=== PATIENT | male | born 1955 | race Caucasian/White ===

== ENCOUNTER 2020-06-26 11:04 | Outpatient (RCR) | payer OTHER, SELFPAY | END 2020-08-06 13:02 | disposition home or self-care (01) | LOC: HO.WCC 11:04 | PROVIDERS: PCP Internal Medicine; Visit Provider Physician Assistant Surgical | DX: E11.621 Type 2 diabetes mellitus with foot ulcer (principal); I87.331 Chronic venous hypertension (idiopathic) with ulcer and inflammation of right lower extremity; L97.512 Non-pressure chronic ulcer of other part of right foot with fat layer exposed; E11.622 Type 2 diabetes mellitus with other skin ulcer; L97.812 Non-pressure chronic ulcer of other part of right lower leg with fat layer exposed; E11.40 Type 2 diabetes mellitus with diabetic neuropathy, unspecified; G82.22 Paraplegia, incomplete | CPT/HCPCS: 99213; 99214 ==

== ENCOUNTER 2020-09-24 12:45 | Outpatient (RCR) | payer OTHER, SELFPAY | END 2021-06-09 15:46 | disposition home or self-care (01) | LOC: HO.WCC 12:45 | PROVIDERS: Visit Provider Physician Assistant | DX: E11.621 Type 2 diabetes mellitus with foot ulcer (principal); L97.412 Non-pressure chronic ulcer of right heel and midfoot with fat layer exposed; L89.899 Pressure ulcer of other site, unspecified stage; S91.105A Unspecified open wound of left lesser toe(s) without damage to nail, initial encounter; E11.51 Type 2 diabetes mellitus with diabetic peripheral angiopathy without gangrene; G82.22 Paraplegia, incomplete; Z99.3 Dependence on wheelchair | CPT/HCPCS: 11042; 11043; 11045; 11046; 15271; 15275; 17250; 97597; 99213; 99215; Q4106; Q4187 ==

== ENCOUNTER 2020-09-24 19:01 | Inpatient (IN) | payer OTHER, SELFPAY ==
[2020-09-24 19:19] VITALS: BP 122/78; PULSE 118; RESP 16; TEMP 36.8; O2SAT 84; BMI 35.1
--- NOTE | 2020-09-24 19:20 | ECG_ITS ---
Test Reason : FLU LIKE SYMPTOMS Blood Pressure : / mmHG Vent. Rate : 114 BPM Atrial Rate : 117 BPM P-R Int : 000 ms QRS Dur : 092 ms QT Int : 264 ms P-R-T Axes : 000 -20 001 degrees QTc Int : 363 ms Atrial fibrillation with rapid ventricular response Cannot exclude old inferior infarct Abnormal ECG No previous ECGs available Referred By: Huma Staley Electronically Signed By:CHONG CAMARA
--- NOTE | 2020-09-24 19:20 | XR_ITS ---
EXAMINATION: XR CHEST CLINICAL INFORMATION: Shortness of breath. Hypoxia.. COMPARISON: None TECHNIQUE: Frontal view of the chest was obtained. FINDINGS: Low lung volumes with left basilar subsegmental atelectasis. 3 consolidation. Moderate hiatal hernia. No pleural effusion or pneumothorax. Heart size incompletely assessed. XR/XR chest 1V IMPRESSION: Low lung volumes. No acute findings.
--- NOTE | 2020-09-24 19:29 | PC.NURSE ---
XRAY OBTAINED AT BEDSIDE. RESPIRATORY TREATMENT TO BE CHANGED TO INHALER PER MEL OQUENDO.
[2020-09-24 19:32] VITALS: BP 144/85; PULSE 116; RESP 22; O2SAT 100
--- NOTE | 2020-09-24 19:55 | ED_ITS ---
HPI - General Adult General Chief complaint: General Medical Stated complaint: R FOOT PAIN,HX OF DM NEUROPATHY,REQ OF VASC SURG Time Seen by Provider: 09/24/20 19:05 Source: patient and EMS Mode of arrival: EMS History of Present Illness HPI narrative: 64yo M with a past medical history of AFib on Eliquis, alcohol abuse, cellulitis, CVA, diabetes, indwelling catheter, BIBA c/o SOB, dry cough x couples days, and worsening LE weeping and swelling x mos, sent in by Dr. Lovell at wound clinic. Also reports ETOH abuse, trying to go to detox, admits to drinking 500-1200ml had liquor daily. Denies fever, chills, abd pain, N/V, CP. Denies contact with covid. Lives with son. Onset (ago): day(s) Related Data Home Medications Medication Instructions Recorded Confirmed apixaban [Eliquis] 5 mg PO BID 09/24/20 09/24/20 ascorbic acid (vitamin C) 500 mg PO BID 09/24/20 09/24/20 [Ascorbic Acid with Shruti Hips] atorvastatin 20 mg PO DAILY 09/24/20 09/24/20 buprenorphine HCl 4 mg SUBLINGUAL Q6H PRN 09/24/20 09/24/20 calcium carbonate-vitamin D3 1 tab PO DAILY 09/24/20 09/24/20 clobetasol 1 appl TOPICAL BID PRN 09/24/20 09/24/20 ferrous sulfate 325 mg PO DAILY 09/24/20 09/24/20 folic acid 1 mg PO DAILY 09/24/20 09/24/20 gabapentin 300 mg PO BEDTIME 09/24/20 09/24/20 insulin glargine 22 unit SUBCUT BEDTIME 09/24/20 09/24/20 insulin lispro 2 unit SUBCUT TID 09/24/20 09/24/20 levothyroxine 112 mcg PO DAILY 09/24/20 09/24/20 magnesium oxide 400 mg PO DAILY 09/24/20 09/24/20 methocarbamol 750 mg PO BID PRN 09/24/20 09/24/20 metoprolol tartrate 12.5 mg PO BID 09/24/20 09/24/20 multivitamin 1 tab PO DAILY 09/24/20 09/24/20 nystatin [Nystop] 1 appl TOPICAL BID 09/24/20 09/24/20 omeprazole 40 mg PO BID 09/24/20 09/24/20 polyethylene glycol 3350 [Miralax] 17 g PO DAILY 09/24/20 09/24/20 sennosides [senna] 17.2 mg PO BEDTIME 09/24/20 09/24/20 thiamine HCl (vitamin B1) 100 mg PO DAILY 09/24/20 09/24/20 torsemide 20 mg PO BID 09/24/20 09/24/20 triamcinolone acetonide 1 appl TOPICAL BID 09/24/20 09/24/20 Allergies Allergy/AdvReac Type Severity Reaction Status Date / Time amlodipine Allergy Unknown Unknown Verified 09/24/20 21:28 Review of Systems Review of Systems: Constitutional: No Weight loss, No Fever, No Chills, + Fatigue, No Malaise Cardiovascular: No Chest Pain, + SOB, + Dyspnea on Exertion, + Orthopnea, + Edema, No Palpitations Respiratory: + Cough, No Sputum, No Wheezing Gastrointestinal: No Nausea, No Vomiting, No Diarrhea, No Constipation, No Abdominal pain Genitourinary: No irregular bleeding, No Dysuria, No Urinary Frequency, No Hematuria Musculoskeletal: No joint pain, No Myalgias, No Joint Swelling Skin: No Skin Lesions, No rash Neuro: + Headache Yes all other systems are reviewed and are negative [facility] Past Medical History Attestation statement: The following information was validated with the patient. Medical History (Updated 09/24/20 @ 22:40 by MEL Garcia) Afib Alcohol abuse Cardiac defibrillator in place Cellulitis CVA (cerebral vascular accident) Diabetes Indwelling catheter present on admission Social History Social History Advance Directives: No Advance Directives Information Provided: No Physical Exam Vital Signs: Vital Signs: Last Vital Signs Temp 98.7 F 09/24/20 20:00 Pulse 117 H 09/24/20 22:00 Resp 20 09/24/20 22:00 BP 125/82 09/24/20 22:00 Pulse Ox 100 09/24/20 22:00 Body Mass Index 35.1 Const: General: cooperative and poor hygiene Nutritional Appearance: obese Orientation/consciousness: patient oriented x3 Limitations: no limitations HENMT: Head: Yes normal to inspection Ears: hearing grossly normal bilaterally General nose exam: Normal external nose present Face and sinus: Yes normal facial exam Eyes: General: appearance normal, both eyes and all related structures EOM: EOMs intact bilaterally Neck: Neck: Yes normal visual inspection and Yes no meningeal signs Resp: Effort & Inspection: normal respiratory effort, no stridor and tachypneic Auscultation: diminished lung sounds (Bibasilar) Cardio: Rate: tachycardic Heart sounds: S1 normal heart sound present and S2 normal heart sound present GI: Inspection: Yes normal to inspection Palpation (GI): Soft to palpation, nontender, no guarding and not rigid : Other: + fungal rash noted to lower abdomen/groin Skin: Other: + bilateral lower extremity pitting edema with skin breakdown & clear drainage. weeping wounds to b/l feet. +erythema to b/l LE and warmth to touch to LLE Rashes: no rashes Wounds: no wounds Neuro: General: patient oriented x3 and no meningeal signs Extrem: General: Yes normal to inspection Course Course Course Narrative: XR chest 1V IMPRESSION: Low lung volumes. No acute findings * no leukocytosis, sodium low 122, K+5.4, BNP 50 * COVID/Flu/RSV negative * Lactic 2.6 > avoiding IVF due to fluid overload LT 2V IMPRESSION: Prominent diffuse soft tissue swelling. Significant osteopenia which limits the evaluation. No definite osseous erosions. XR foot RT 2V IMPRESSION: 1. Diffuse soft tissue swelling, particularly at the dorsum of the foot. No air or radiopaque foreign body. 2. Focal bone loss of the distal tibia at the anterior ankle joint. There are fine reticular soft tissue calcifications adjacent to this site. This could be chronic but an acute abnormality including osteomyelitis not excluded. Clinically correlate. MRI of the ankle without and with contrast would be helpful for further evaluation. 3. Severe arthropathy of the first metatarsal phalangeal joint * Likely chronic changes * UA positive > Zosyn should cover CT chest wo con IMPRESSION: * No evidence of acute pneumonitis or consolidation. * Low lung volumes and right basilar subsegmental atelectasis. * Cardiomegaly, mild. * Ascending aortic aneurysm measures 4.9 cm. No intramural hematoma. * Moderate to severe hepatic steatosis. * Indeterminate, incompletely imaged left adrenal nodule measuring 2.[address] adrenal mass protocol for further evaluation. Plan for admission > Vancomycin added to regimen Medical Decision Making MDM Narrative Medical decision making narrative: 64yo M with a past medical history of AFib on Eliquis, alcohol abuse, cellulitis, CVA, diabetes, indwelling catheter, BIBA c/o SOB, dry cough x couples days, and worsening LE weeping and swelling x mos, sent in by Dr. Lovell. On exam tachycardic, tachypneic, satting 84% on RA > increased to 100% on 4 L nasal cannula, with decreased breath sounds bibasilar, bilateral LE pitting edema with skin breakdown/cellulites. Concern for COVID- 19/viral syndrome vs pneumonia vs CHF vs cellulitis/osteomyelitis. Lower concern for PE as patient is anticoagulated Plan: EKG, labs, imaging, albuterol, Decadron, COVID-19 testing, empiric IV antibiotics, admission. Holding IVF due to fluid overload and hypoventilation syndrome Lab Data Result diagrams: 09/24/20 19:49 09/24/20 19:49 Labs: Lab Results 09/24/20 09/24/20 09/24/20 Range/Units 19:48 19:48 19:48 WBC (4.8-10.8) X10*3/uL RBC (4.60-5.80) X10*6/uL Hgb (14.0-18.0) g/dl Hct (42-52) % MCV (80-98) fL MCH (27.0-33.0) pg MCHC (31.0-36.0) g/dl RDW (11.0-16.0) % Plt Count (160-400) X10*3/uL MPV (9.4-12.4) fL Immature Gran % (Auto) (0.0-0.4) % Neut % (Auto) (45-73) % Lymph % (Auto) (20-40) % [place] % (Auto) (2-11) % Eos % (Auto) (0-4) % Baso % (Auto) (0-2) % Lymph # (Auto) (1.2-4.9) X10*3/uL [place] # (Auto) (0.1-1.2) X10*3/uL Eos # (Auto) (0.0-0.4) X10*3/uL Baso # (Auto) (0.0-0.2) X10*3/uL Abs Immat Gran (auto) (0.00-0.03) X10*3/uL Absolute Neuts (auto) (2.0-8.3) X10*3/uL Absolute Nucleated RBC (0.0-0.012) X10*3/uL Nucleated RBC % (auto) (0.0-0.2) /100WBC Smear Tech's Comments PT (10.8-13.0) SEC INR (0.9-1.1) APTT (24.1-38.0) SEC Sodium (135-145) mmol/L Potassium (3.3-5.1) mmol/l Chloride (96-108) mmol/L Carbon Dioxide (22-29) mmol/L Anion Gap (12-20) BUN (9-16) mg/dL Creatinine (0.5-1.4) mg/dL Estim Creat Clear Calc Estimated GFR Random Glucose (60-115) mg/dL Lactic Acid 2.6 H* (0.5-2.0) mmol/L Lactic Acid Fup @ 2Hr (0.5-2.0) mmol/L Calcium (8.4-10.2) mg/dL Magnesium 2.3 (1.6-2.6) mg/dL Ferritin 43 (20-250) ng/mL Total Bilirubin (0.0-1.0) mg/dL Direct Bilirubin (0.0-0.5) mg/dL AST (5-37) U/L ALT (0-40) U/L Alkaline Phosphatase (39-117) U/L Lactate Dehydrogenase 558 H (118-273) U/L Troponin I High Sens 11.0 (<3.5-35.0) ng/L C-Reactive Protein 1.01 H (< or = 0.50) mg/dL B-Natriuretic Peptide 50 (<100) pg/mL Total Protein (6.5-8.0) g/dL Albumin (3.5-5.0) g/dL Procalcitonin ng/mL Urine Color Urine Appearance Urine pH (5.0-8.0) Ur Specific [place] (1.005-1.025) Urine Protein (NEG-TRACE) MG/DL Urine Glucose (UA) (NEG) MG/DL Urine Ketones (NEG) MG/DL Urine Blood (NEG) Urine Nitrite (NEG) Ur Leukocyte Esterase (NEG) Urine RBC (0) /HPF Urine WBC (0-4) /HPF Ur Squamous Epith Cells /LPF Urine Bacteria /LPF Urine Mucus /LPF Ethyl Alcohol mg/dL Coronavirus (PCR) (Negative) Influenza Type A (PCR) (Negative) Influenza Type B (PCR) (Negative) RSV RNA Qual (PCR) (Negative) 09/24/20 09/24/20 09/24/20 Range/Units 19:49 19:49 19:49 WBC 10.5 (4.8-10.8) X10*3/uL RBC 4.00 L (4.60-5.80) X10*6/uL Hgb 11.9 L (14.0-18.0) g/dl Hct 39.1 L (42-52) % MCV 97.8 (80-98) fL MCH 29.8 (27.0-33.0) pg MCHC 30.4 L (31.0-36.0) g/dl RDW 17.6 H (11.0-16.0) % Plt Count 223 (160-400) X10*3/uL MPV 9.3 L (9.4-12.4) fL Immature Gran % (Auto) 1.2 H (0.0-0.4) % Neut % (Auto) 85.6 H (45-73) % Lymph % (Auto) 4.7 L (20-40) % [place] % (Auto) 7.3 (2-11) % Eos % (Auto) 0.9 (0-4) % Baso % (Auto) 0.3 (0-2) % Lymph # (Auto) 0.5 L (1.2-4.9) X10*3/uL [place] # (Auto) 0.8 (0.1-1.2) X10*3/uL Eos # (Auto) 0.1 (0.0-0.4) X10*3/uL Baso # (Auto) 0.0 (0.0-0.2) X10*3/uL Abs Immat Gran (auto) 0.13 H (0.00-0.03) X10*3/uL Absolute Neuts (auto) 9.0 H (2.0-8.3) X10*3/uL Absolute Nucleated RBC 0.000 (0.0-0.012) X10*3/uL Nucleated RBC % (auto) 0.0 (0.0-0.2) /100WBC Smear Tech's Comments VERIFIED PT 17.2 H (10.8-13.0) SEC INR 1.4 H (0.9-1.1) APTT 30.4 (24.1-38.0) SEC Sodium 122 L (135-145) mmol/L Potassium 5.4 H (3.3-5.1) mmol/l Chloride 86 L (96-108) mmol/L Carbon Dioxide 28 (22-29) mmol/L Anion Gap 13 (12-20) BUN 31 H (9-16) mg/dL Creatinine 1.19 (0.5-1.4) mg/dL Estim Creat Clear Calc 95.0 Estimated GFR > 60 Random Glucose 238 H (60-115) mg/dL Lactic Acid (0.5-2.0) mmol/L Lactic Acid Fup @ 2Hr (0.5-2.0) mmol/L Calcium 8.3 L (8.4-10.2) mg/dL Magnesium (1.6-2.6) mg/dL Ferritin (20-250) ng/mL Total Bilirubin 0.4 (0.0-1.0) mg/dL Direct Bilirubin 0.3 (0.0-0.5) mg/dL AST 33 (5-37) U/L ALT 55 H (0-40) U/L Alkaline Phosphatase 142 H (39-117) U/L Lactate Dehydrogenase (118-273) U/L Troponin I High Sens (<3.5-35.0) ng/L C-Reactive Protein (< or = 0.50) mg/dL B-Natriuretic Peptide (<100) pg/mL Total Protein 6.4 L (6.5-8.0) g/dL Albumin 3.6 (3.5-5.0) g/dL Procalcitonin ng/mL Urine Color Urine Appearance Urine pH (5.0-8.0) Ur Specific [place] (1.005-1.025) Urine Protein (NEG-TRACE) MG/DL Urine Glucose (UA) (NEG) MG/DL Urine Ketones (NEG) MG/DL Urine Blood (NEG) Urine Nitrite (NEG) Ur Leukocyte Esterase (NEG) Urine RBC (0) /HPF Urine WBC (0-4) /HPF Ur Squamous Epith Cells /LPF Urine Bacteria /LPF Urine Mucus /LPF Ethyl Alcohol mg/dL Coronavirus (PCR) (Negative) Influenza Type A (PCR) (Negative) Influenza Type B (PCR) (Negative) RSV RNA Qual (PCR) (Negative) 09/24/20 09/24/20 09/24/20 Range/Units 19:50 19:51 20:11 WBC (4.8-10.8) X10*3/uL RBC (4.60-5.80) X10*6/uL Hgb (14.0-18.0) g/dl Hct (42-52) % MCV (80-98) fL MCH (27.0-33.0) pg MCHC (31.0-36.0) g/dl RDW (11.0-16.0) % Plt Count (160-400) X10*3/uL MPV (9.4-12.4) fL Immature Gran % (Auto) (0.0-0.4) % Neut % (Auto) (45-73) % Lymph % (Auto) (20-40) % [place] % (Auto) (2-11) % Eos % (Auto) (0-4) % Baso % (Auto) (0-2) % Lymph # (Auto) (1.2-4.9) X10*3/uL [place] # (Auto) (0.1-1.2) X10*3/uL Eos # (Auto) (0.0-0.4) X10*3/uL Baso # (Auto) (0.0-0.2) X10*3/uL Abs Immat Gran (auto) (0.00-0.03) X10*3/uL Absolute Neuts (auto) (2.0-8.3) X10*3/uL Absolute Nucleated RBC (0.0-0.012) X10*3/uL Nucleated RBC % (auto) (0.0-0.2) /100WBC Smear Tech's Comments PT (10.8-13.0) SEC INR (0.9-1.1) APTT (24.1-38.0) SEC Sodium (135-145) mmol/L Potassium (3.3-5.1) mmol/l Chloride (96-108) mmol/L Carbon Dioxide (22-29) mmol/L Anion Gap (12-20) BUN (9-16) mg/dL Creatinine (0.5-1.4) mg/dL Estim Creat Clear Calc Estimated GFR Random Glucose (60-115) mg/dL Lactic Acid (0.5-2.0) mmol/L Lactic Acid Fup @ 2Hr (0.5-2.0) mmol/L Calcium (8.4-10.2) mg/dL Magnesium (1.6-2.6) mg/dL Ferritin (20-250) ng/mL Total Bilirubin (0.0-1.0) mg/dL Direct Bilirubin (0.0-0.5) mg/dL AST (5-37) U/L ALT (0-40) U/L Alkaline Phosphatase (39-117) U/L Lactate Dehydrogenase (118-273) U/L Troponin I High Sens (<3.5-35.0) ng/L C-Reactive Protein (< or = 0.50) mg/dL B-Natriuretic Peptide (<100) pg/mL Total Protein (6.5-8.0) g/dL Albumin (3.5-5.0) g/dL Procalcitonin 0.43 ng/mL Urine Color Urine Appearance Urine pH (5.0-8.0) Ur Specific [place] (1.005-1.025) Urine Protein (NEG-TRACE) MG/DL Urine Glucose (UA) (NEG) MG/DL Urine Ketones (NEG) MG/DL Urine Blood (NEG) Urine Nitrite (NEG) Ur Leukocyte Esterase (NEG) Urine RBC (0) /HPF Urine WBC (0-4) /HPF Ur Squamous Epith Cells /LPF Urine Bacteria /LPF Urine Mucus /LPF Ethyl Alcohol 28 mg/dL Coronavirus (PCR) NEGATIVE (Negative) Influenza Type A (PCR) NEGATIVE (Negative) Influenza Type B (PCR) NEGATIVE (Negative) RSV RNA Qual (PCR) NEGATIVE (Negative) 09/24/20 09/24/20 Range/Units 22:02 22:04 WBC (4.8-10.8) X10*3/uL RBC (4.60-5.80) X10*6/uL Hgb (14.0-18.0) g/dl Hct (42-52) % MCV (80-98) fL MCH (27.0-33.0) pg MCHC (31.0-36.0) g/dl RDW (11.0-16.0) % Plt Count (160-400) X10*3/uL MPV (9.4-12.4) fL Immature Gran % (Auto) (0.0-0.4) % Neut % (Auto) (45-73) % Lymph % (Auto) (20-40) % [place] % (Auto) (2-11) % Eos % (Auto) (0-4) % Baso % (Auto) (0-2) % Lymph # (Auto) (1.2-4.9) X10*3/uL [place] # (Auto) (0.1-1.2) X10*3/uL Eos # (Auto) (0.0-0.4) X10*3/uL Baso # (Auto) (0.0-0.2) X10*3/uL Abs Immat Gran (auto) (0.00-0.03) X10*3/uL Absolute Neuts (auto) (2.0-8.3) X10*3/uL Absolute Nucleated RBC (0.0-0.012) X10*3/uL Nucleated RBC % (auto) (0.0-0.2) /100WBC Smear Tech's Comments PT (10.8-13.0) SEC INR (0.9-1.1) APTT (24.1-38.0) SEC Sodium (135-145) mmol/L Potassium (3.3-5.1) mmol/l Chloride (96-108) mmol/L Carbon Dioxide (22-29) mmol/L Anion Gap (12-20) BUN (9-16) mg/dL Creatinine (0.5-1.4) mg/dL Estim Creat Clear Calc Estimated GFR Random Glucose (60-115) mg/dL Lactic Acid (0.5-2.0) mmol/L Lactic Acid Fup @ 2Hr 2.3 H* (0.5-2.0) mmol/L Calcium (8.4-10.2) mg/dL Magnesium (1.6-2.6) mg/dL Ferritin (20-250) ng/mL Total Bilirubin (0.0-1.0) mg/dL Direct Bilirubin (0.0-0.5) mg/dL AST (5-37) U/L ALT (0-40) U/L Alkaline Phosphatase (39-117) U/L Lactate Dehydrogenase (118-273) U/L Troponin I High Sens (<3.5-35.0) ng/L C-Reactive Protein (< or = 0.50) mg/dL B-Natriuretic Peptide (<100) pg/mL Total Protein (6.5-8.0) g/dL Albumin (3.5-5.0) g/dL Procalcitonin ng/mL Urine Color COLORLESS Urine Appearance CLOUDY Urine pH 8.0 (5.0-8.0) Ur Specific [place] 1.015 (1.005-1.025) Urine Protein NEG (NEG-TRACE) MG/DL Urine Glucose (UA) NEG (NEG) MG/DL Urine Ketones NEG (NEG) MG/DL Urine Blood 3+ H (NEG) Urine Nitrite POS H (NEG) Ur Leukocyte Esterase 3+ H (NEG) Urine RBC 10-14 H (0) /HPF Urine WBC 30-49 H (0-4) /HPF Ur Squamous Epith Cells 1+ /LPF Urine Bacteria 2+ /LPF Urine Mucus 1+ /LPF Ethyl Alcohol mg/dL Coronavirus (PCR) (Negative) Influenza Type A (PCR) (Negative) Influenza Type B (PCR) (Negative) RSV RNA Qual (PCR) (Negative) Discharge Plan Discharge Clinical Impression: Cellulitis, Acute UTI, Fluid overload Patient Disposition: Admitted As Inpatient
[2020-09-24 20:00] VITALS: BP 104/65; PULSE 123; RESP 26; TEMP 37.1; O2SAT 100
[2020-09-24 20:07] LABS: Basophils Percent Auto 0.3 % (0-2); Eosinophils Absolute Auto 0.1 X10*3/uL (0.0-0.4); Eosinophils Percent Auto 0.9 % (0-4); Hematocrit 39.1 % (42-52); Hemoglobin 11.9 g/dl (14.0-18.0); Imm Gran Abs Auto 0.13 X10*3/uL (0.00-0.03); Imm Gran Pct Auto 1.2 % (0.0-0.4); Lymphocytes Absolute Auto 0.5 X10*3/uL (1.2-4.9); Lymphocytes Percent Auto 4.7 % (20-40); MANUAL DIFF FLAG SCAN; Mean Corpuscular HGB Conc 30.4 g/dl (31.0-36.0); Mean Corpuscular Hemoglobin 29.8 pg (27.0-33.0); Mean Corpuscular Volume 97.8 fL (80-98); Mean Platelet Volume 9.3 fL (9.4-12.4); Monocytes Absolute Auto 0.8 X10*3/uL (0.1-1.2); Monocytes Percent Auto 7.3 % (2-11); Neutrophils Percent Auto 85.6 % (45-73); Platelet Count 223 X10*3/uL (160-400); Red Cell Distribution Width 17.6 % (11.0-16.0); SCAN SMEAR FLAG 1; White Blood Count 10.5 X10*3/uL (4.8-10.8)
--- NOTE | 2020-09-24 20:10 | XR_ITS ---
EXAMINATION: XR FOOT, RIGHT CLINICAL INFORMATION: Concern for osteomyelitis. COMPARISON: None TECHNIQUE: 2 views of the right foot. FINDINGS: There is diffuse soft tissue swelling of the foot. This is most significant at the forefoot at the dorsum of the foot. There is no air in the soft tissues. There is diffuse osteopenia. There is cortical bone loss at the anterior tibia at the joint line with adjacent soft tissue fine calcifications which could be acute or chronic. There is no other area of bone destruction of the foot. No abnormal periosteal reaction. There is degenerative change of bony ankylosis of the first metatarsal phalangeal joint. There are marginal bone spurs and subchondral lucencies at this joint involving the phalanges and the metatarsal head. XR/XR foot RT 2V IMPRESSION: 1. Diffuse soft tissue swelling, particularly at the dorsum of the foot. No air or radiopaque foreign body. 2. Focal bone loss of the distal tibia at the anterior ankle joint. There are fine reticular soft tissue calcifications adjacent to this site. This could be chronic but an acute abnormality including osteomyelitis not excluded. Clinically correlate. MRI of the ankle without and with contrast would be helpful for further evaluation. 3. Severe arthropathy of the first metatarsal phalangeal joint
--- NOTE | 2020-09-24 20:10 | XR_ITS ---
EXAMINATION: XR FOOT, LEFT CLINICAL INFORMATION: Evaluate osteomyelitis COMPARISON: None TECHNIQUE: 2 views of the left foot. FINDINGS: Osteopenia. No fracture or dislocation. Diffuse significant osteopenia throughout the mid foot limits evaluation. No definite erosive changes. Degenerative changes are seen at the interphalangeal joints. Degenerative changes noted at the ankle. There is diffuse prominent soft tissue swelling. XR/XR foot LT 2V IMPRESSION: Prominent diffuse soft tissue swelling. Significant osteopenia which limits the evaluation. No definite osseous erosions.
[2020-09-24 20:12] LABS: INTERNATIONAL NORM RATIO 1.4 (0.9-1.1); Prothrombin Time 17.2 SEC (10.8-13.0)
[2020-09-24 20:15] LABS: Partial Thromboplastin Time 30.4 SEC (24.1-38.0)
[2020-09-24 20:24] LABS: SLIDE REVIEW VERIFIED
[2020-09-24 20:26] LABS: C Reactive Protein 1.01 mg/dL (< or = 0.50); Lactate Dehydrogenase 558 U/L (118-273); Magnesium 2.3 mg/dL (1.6-2.6)
[2020-09-24 20:30] LABS: B Type Natriuretic Peptide 50 pg/mL (<100)
[2020-09-24 20:31] LABS: Ethanol 28 mg/dL
[2020-09-24 20:36] LABS: Alanine Aminotransferase 55 U/L (0-40); Albumin Level 3.6 g/dL (3.5-5.0); Alkaline Phosphatase 142 U/L (39-117); Anion Gap 13 (12-20); Aspartate Amino Transferase 33 U/L (5-37); Bilirubin Direct 0.3 mg/dL (0.0-0.5); Bilirubin Total 0.4 mg/dL (0.0-1.0); Blood Urea Nitrogen 31 mg/dL (9-16); Calcium 8.3 mg/dL (8.4-10.2); Carbon Dioxide 28 mmol/L (22-29); Chloride 86 mmol/L (96-108); Estimated Glomerular Filt Rate > 60; Glucose Random 238 mg/dL (60-115); Potassium 5.4 mmol/l (3.3-5.1); Sodium 122 mmol/L (135-145); Total Protein 6.4 g/dL (6.5-8.0)
[2020-09-24] MEDS: dexAMETHasone sod phosphate 4 MG/ML VIAL 6 MG IVPUSH (20:36)
[2020-09-24] MEDS: Furosemide 40 MG/4 ML VIAL IVPUSH (20:36)
[2020-09-24] MEDS: Piperacillin Sodium/Tazobactam 3.375 GM in 0.9 % Sodium Chloride 50 ML IV (20:37)
[2020-09-24 20:40] LABS: Lactic Acid 2.6 mmol/L (0.5-2.0)
[2020-09-24 20:43] LABS: Influenza A PCR NEGATIVE (Negative); Influenza B PCR NEGATIVE (Negative); Resp Syncy Virus RNA Qual PCR NEGATIVE (Negative); SARS COV2 PCR INHOUSE NEGATIVE (Negative)
[2020-09-24 20:44] LABS: Procalcitonin 0.43 ng/mL
[2020-09-24 20:48] LABS: Ferritin 43 ng/mL (20-250)
--- NOTE | 2020-09-24 20:55 | CT_ITS ---
EXAMINATION: CT CHEST WITHOUT CONTRAST CLINICAL INFORMATION: Hypoxia COMPARISON: None TECHNIQUE: Multidetector volumetric CT imaging of the chest was done. Axial MIP volume rendering provided. Sagittal and coronal reformatted images were obtained. This CT examination was performed using dose optimization techniques as appropriate, variously including the following: *Automated exposure control *Adjustment of mA and/or kV according to patient size (this includes techniques or standardized protocols for targeted exams where dose is matched to indication/reason for exam; i.e. extremities or head) *Use of iterative reconstruction technique DLP: 458 mGy-cm FINDINGS: LUNGS: Low lung volumes and bibasilar subsegmental atelectasis, more pronounced at the right lung base posteriorly. No evidence of acute pneumonitis or infective parenchymal consolidation. MEDIASTINUM: Mild cardiomegaly. Ascending aortic aneurysm measures 4.9 cm. No evidence of intramural hematoma. No pericardial effusion. No mediastinal or hilar adenopathy. Triple vessel coronary calcifications. PLEURA: There is no pleural effusion. No pleural mass or thickening. AXILLA: No lymphadenopathy. UPPER ABDOMEN: Severe diffuse hepatic steatosis. Incompletely imaged nodule in the region of the left adrenal genu measuring 2.8 cmc, with attenuation of [address] Hounsfield [address] Recommend dedicated [address] adrenal mass protocol.. OSSEOUS STRUCTURES: No acute or suspicious osseous abnormalities. CT/CT chest wo con IMPRESSION: * No evidence of acute pneumonitis or consolidation. * Low lung volumes and right basilar subsegmental atelectasis. * Cardiomegaly, mild. * Ascending aortic aneurysm measures 4.9 cm. No intramural hematoma. * Moderate to severe hepatic steatosis. * Indeterminate, incompletely imaged left adrenal nodule measuring 2.[address] adrenal mass protocol for further evaluation.
[2020-09-24] MEDS: Albuterol Sulfate 90 MCG 8 GM INHALER 4 PUFF INHALE (21:01)
[2020-09-24 21:02] VITALS: PULSE 117; O2SAT 99
--- NOTE | 2020-09-24 21:48 | PC.NURSE ---
INSTRUCTED TO HOLD ORDERED METOPROLOL BY MEL OQUENDO. PT STATES I JUST TAKE WHATEVER MEDS THEY GIVE ME, I JUST TAKE WHAT'S IN FRONT OF ME. SO I KNOW THAT SOMETIMES I TAKE MY METOPROLOL, BUT SOMETIMES I DON'T, AND SOMETIMES IT'S JUST HALF OF A TABLET BECAUSE MY BLOOD PRESSURE IS FINE. PROVIDER NOTIFIED OF THIS STATEMENT, AWARE OF CURRENT VITAL SIGNS. WILL CONTINUE TO MONITOR. PATIENT ALSO EXPRESSING FRUSTRATION REGARDING WAITING FOR A BED ASSIGNMENT. STATES UGH, MY DOCTOR CALLED [facility] SO I SHOULD HAVE JUST BEEN ADMITTED RIGHT AWAY. I DON'T WANT TO BE STUCK DOWN HERE [IN THE ED] WITH THESE PEOPLE [OTHER ED PATIENTS]. WILL CONTINUE TO MONITOR.
[2020-09-24 21:58] VITALS: BP 125/82; PULSE 108
[2020-09-24 22:00] VITALS: BP 125/82; PULSE 117; RESP 20; O2SAT 100
[2020-09-24 22:00] LABS: Reflex Lactate? Lactic Acid Added
[2020-09-24 22:11] LABS: Glucose Urine UA NEG (NEG); Leukocyte Esterase Urine 3+ (NEG); Nitrite Urine POS (NEG); Specific Gravity - Urine 1.015 (1.005-1.025); Urine Blood 3+ (NEG); Urine Ketones NEG (NEG); Urine Protein NEG (NEG-TRACE)
[2020-09-24 22:12] LABS: Color Urine COLORLESS
[2020-09-24 22:13] LABS: Appearance Urine CLOUDY
[2020-09-24 22:17] LABS: Bacteria Urine 2+ /LPF; Mucus Urine 1+ /LPF; Squamous Epithelial Cell Urine 1+ /LPF; WBC Urine 30-49 /HPF (0-4)
[2020-09-24 22:33] LABS: ~Lactic Acid-LAB USE ONLY 2.3 mmol/L (0.5-2.0)
--- NOTE | 2020-09-24 23:18 | PC.NURSE ---
HOSPITALIST AT BEDSIDE FOR EVALUATION. PHOTOS TAKEN OF VARIOUS BILATERAL LOWER EXTREMITY WOUNDS. LEGS WEEPING, SCALY, PINK. TOES ARE WHITE, BLACK, AND PINK. OOZING LEGS BILATERALLY. PT REPORTS BEING UNABLE TO AMBULATE SINCE 2016 AND USES POWERCHAIR AT HOME, REPORTS BEING ABLE TO SELF TRANSFER FROM BED TO WHEELCHAIR. 20G IV ACCESS REMAINS PATENT AND INTACT ON LEFT AC. AWARE OF PLAN TO ADMIT. SINUS TACHYCARDIA 110s ON [employer]. ON 4LPM OXYGEN VIA NASAL CANNULA. COUGHING, STATES THICK MUCOUS . DENIES FEVER/CHILLS/CHEST PAIN. CHRONIC SIFUENTES CATHETER, CHANGED EVERY 2 WEEKS BY [facility]. CHRONIC ETOH USE, ?WITHDRAWING, SEEKING DETOX.
[2020-09-24] MEDS: PHENobarbitaL sodium 130 MG/ML VIAL 285 MG IM (23:52)
[2020-09-25] VITALS (16 sets, daily range): BP systolic 128–158; BP diastolic 63–91; PULSE 93–117; RESP 18–26; TEMP 36.2–36.8; O2SAT 89–100
[2020-09-25 00:12] LABS: Reflex Lactate? 2 Y
--- NOTE | 2020-09-25 00:21 | P.HPHOSP_ITS ---
History of Present Illness Date of Service: 09/24/20 Chief Complaint: Dyspnea, worsening leg, feet wounds 64 year old man with multiple medical problems presented from wound care at suggestion of vascular surgeon due to worsening appearance of feet. Patient has history of lower extremity edema and chronic venous stasis and has been seen at wound care regularly. His feet have been more erythematous lately and that caused him to be referred to ED. He states no pain in the feet as he has no sensation. States he had a spinal infection approx 4-5 years ago and since has been reliant on motorized scooter as he cannot walk. Per report he had a foot infection that led to his spinal issue so description seems like epidural abscess seeded from the feet. He has been getting wound care periodically for his feet but appearance is worse lately. Denies fevers or chills. Does have weeping from foot wounds that is chronic. He also was hypoxemic on presentation. Occasional cough that produces thick sputum. No chest pain reported. Also noted to be significantly hyponatremic on presentation but no dizziness or lightheadedness and no nausea/vomiting. Also of note, patient has a chronic indwelling Franklin that is changed every 2 weeks. States had a neobladder constructed after resection for bladder cancer and is dpendent on the Franklin now. used to be able to change it but has limited use of his left arm and hand no so cannot self-cath. Arm issues stem from a cervical surgery he was having several years ago. He also is a heavy drinker, consuming approx a half liter or more of spirits daily. States gets shakes occasionally and hallucinations when not drinking but no seizures. Currently was slated to go to rehab for ETOH but had to come here instead for the feet issue. Review of Systems Constitutional: Comments: No chills or fevers Eyes: Comments: No vision changes ENT: Comments: no sore thorat Cardiovascular: Comments: No chest pain Respiratory: Comments: Some dypena on presentation Gastrointestinal: Comments: No nausea, vomiting, abd pain Musculoskeletal: Comments: Numbness in feet is chronic Neurologic: Comments: weakness in legs and left arm/hand Psychiatric: Comments: A bit anxious, not agitated [facility] Medical History (Updated 09/25/20 @ 00:34 by Al Mc MD) Afib Alcohol abuse Cardiac defibrillator in place Cellulitis CVA (cerebral vascular accident) Diabetes Dyslipidemia HTN (hypertension) Hypothyroid Indwelling catheter present on admission Functional capacity: wheelchair bound Pertinent family history: Fam hx of HTN and DM Social History (Updated 09/25/20 @ 00:33 by Al Mc MD) Alcohol intake: current Smoking Status: Unknown if ever smoked Use of substances other than those prescribed or required for medical reasons: No Advance Directives: No Advance Directives Information Provided: No Meds Allergies Allergy/AdvReac Type Severity Reaction Status Date / Time amlodipine Allergy Unknown Unknown Verified 09/24/20 21:28 acetaminophen [From Percocet] Allergy Unknown Verified 09/25/20 01:13 aspirin Allergy Unknown Verified 09/25/20 01:13 celecoxib [From Celebrex] Allergy Unknown Verified 09/25/20 01:13 morphine Allergy Unknown Verified 09/25/20 01:13 NSAIDS (Non-Steroidal Allergy Unknown Verified 09/25/20 01:13 Anti-Inflamma oxycodone [From Percocet] Allergy Unknown Verified 09/25/20 01:13 tramadol [From Ultram] Allergy Unknown Verified 09/25/20 01:13 Home Medications Medication Instructions Recorded Confirmed Type apixaban [Eliquis] 5 mg PO BID 09/24/20 09/24/20 History ascorbic acid (vitamin C) 500 mg PO BID 09/24/20 09/24/20 History [Ascorbic Acid with Shruti Hips] atorvastatin 20 mg PO DAILY 09/24/20 09/24/20 History buprenorphine HCl 4 mg SUBLINGUAL Q6H PRN 09/24/20 09/24/20 History calcium carbonate-vitamin D3 1 tab PO DAILY 09/24/20 09/24/20 History clobetasol 1 appl TOPICAL BID PRN 09/24/20 09/24/20 History ferrous sulfate 325 mg PO DAILY 09/24/20 09/24/20 History folic acid 1 mg PO DAILY 09/24/20 09/24/20 History gabapentin 300 mg PO BEDTIME 09/24/20 09/24/20 History insulin glargine 22 unit SUBCUT BEDTIME 09/24/20 09/24/20 History insulin lispro 2 unit SUBCUT TID 09/24/20 09/24/20 History levothyroxine 112 mcg PO DAILY 09/24/20 09/24/20 History magnesium oxide 400 mg PO DAILY 09/24/20 09/24/20 History methocarbamol 750 mg PO BID PRN 09/24/20 09/24/20 History metoprolol tartrate 12.5 mg PO BID 09/24/20 09/24/20 History multivitamin 1 tab PO DAILY 09/24/20 09/24/20 History nystatin [Nystop] 1 appl TOPICAL BID 09/24/20 09/24/20 History omeprazole 40 mg PO BID 09/24/20 09/24/20 History polyethylene glycol 3350 [Miralax] 17 g PO DAILY 09/24/20 09/24/20 History sennosides [senna] 17.2 mg PO BEDTIME 09/24/20 09/24/20 History thiamine HCl (vitamin B1) 100 mg PO DAILY 09/24/20 09/24/20 History torsemide 20 mg PO BID 09/24/20 09/24/20 History triamcinolone acetonide 1 appl TOPICAL BID 09/24/20 09/24/20 History Physical Exam Vital Signs and Narrative: Vital Signs: Last Vital Signs Temp 98.7 F 09/24/20 20:00 Pulse 117 H 09/24/20 22:00 Resp 20 09/24/20 22:00 BP 125/82 09/24/20 22:00 Pulse Ox 100 09/24/20 22:00 Body Mass Index 35.1 Const: General: cooperative, comfortable, no acute distress, alert and awake HENMT: Head: Yes normal to inspection Eyes: Other: No scleral icterus, no conjunctival injections General: appearance normal, both eyes and all related structures Chest: Chest palpation & inspection: normal inspection of the chest Resp: Other: Normal chest expansion, no insciratory crackles or exp wheezing Effort & Inspection: normal respiratory effort Cardio: Other: irregular rhythm Rate: regular rate Heart sounds: S1 normal heart sound present and S2 normal heart sound present GI: Other: Soft, nontender, nondistended Inspection: Yes normal to inspection Back/Spine/Pelvis: Other: Small area of skin breakdown in superior part of left buttock. Skin: Other: Markedly abnormal skin in lower extremities bilaterally. Erythema noted below knees and skin changes consistent with venous stasis. Feet have swelling on dorsum R>L and appear erythematous. Some of toes show apparent necrosis at tips. Extrem: Other: See above for description of feet/toes. Feet are cool to the touch and some toes appear dusky with poor capillary refill. Results Labs CBC and Chem 7: 09/24/20 19:49 09/24/20 19:49 Labs: Laboratory Results - last 24 hr 09/24/20 09/24/20 09/24/20 19:48 19:48 19:48 MCV MCH MCHC RDW Plt Count MPV Immature Gran % (Auto) Neut % (Auto) Lymph % (Auto) [place] % (Auto) Eos % (Auto) Baso % (Auto) Lymph # (Auto) [place] # (Auto) Eos # (Auto) Baso # (Auto) Abs Immat Gran (auto) Absolute Neuts (auto) Absolute Nucleated RBC Nucleated RBC % (auto) Smear Tech's Comments PT INR APTT Anion Gap Estim Creat Clear Calc Estimated GFR Random Glucose Lactic Acid 2.6 H* Lactic Acid Fup @ 2Hr Calcium Magnesium 2.3 Ferritin 43 Total Bilirubin Direct Bilirubin AST ALT Alkaline Phosphatase Lactate Dehydrogenase 558 H Troponin I High Sens 11.0 C-Reactive Protein 1.01 H B-Natriuretic Peptide 50 Total Protein Albumin Procalcitonin Urine Color Urine Appearance Urine pH Ur Specific [place] Urine Protein Urine Glucose (UA) Urine Ketones Urine Blood Urine Nitrite Ur Leukocyte Esterase Urine RBC Urine WBC Ur Squamous Epith Cells Urine Bacteria Urine Mucus Ethyl Alcohol Coronavirus (PCR) Influenza Type A (PCR) Influenza Type B (PCR) RSV RNA Qual (PCR) 09/24/20 09/24/20 09/24/20 19:49 19:49 19:49 MCV 97.8 MCH 29.8 MCHC 30.4 L RDW 17.6 H Plt Count 223 MPV 9.3 L Immature Gran % (Auto) 1.2 H Neut % (Auto) 85.6 H Lymph % (Auto) 4.7 L [place] % (Auto) 7.3 Eos % (Auto) 0.9 Baso % (Auto) 0.3 Lymph # (Auto) 0.5 L [place] # (Auto) 0.8 Eos # (Auto) 0.1 Baso # (Auto) 0.0 Abs Immat Gran (auto) 0.13 H Absolute Neuts (auto) 9.0 H Absolute Nucleated RBC 0.000 Nucleated RBC % (auto) 0.0 Smear Tech's Comments VERIFIED PT 17.2 H INR 1.4 H APTT 30.4 Anion Gap 13 Estim Creat Clear Calc 95.0 Estimated GFR > 60 Random Glucose 238 H Lactic Acid Lactic Acid Fup @ 2Hr Calcium 8.3 L Magnesium Ferritin Total Bilirubin 0.4 Direct Bilirubin 0.3 AST 33 ALT 55 H Alkaline Phosphatase 142 H Lactate Dehydrogenase Troponin I High Sens C-Reactive Protein B-Natriuretic Peptide Total Protein 6.4 L Albumin 3.6 Procalcitonin Urine Color Urine Appearance Urine pH Ur Specific [place] Urine Protein Urine Glucose (UA) Urine Ketones Urine Blood Urine Nitrite Ur Leukocyte Esterase Urine RBC Urine WBC Ur Squamous Epith Cells Urine Bacteria Urine Mucus Ethyl Alcohol Coronavirus (PCR) Influenza Type A (PCR) Influenza Type B (PCR) RSV RNA Qual (PCR) 09/24/20 09/24/20 09/24/20 19:50 19:51 20:11 MCV MCH MCHC RDW Plt Count MPV Immature Gran % (Auto) Neut % (Auto) Lymph % (Auto) [place] % (Auto) Eos % (Auto) Baso % (Auto) Lymph # (Auto) [place] # (Auto) Eos # (Auto) Baso # (Auto) Abs Immat Gran (auto) Absolute Neuts (auto) Absolute Nucleated RBC Nucleated RBC % (auto) Smear Tech's Comments PT INR APTT Anion Gap Estim Creat Clear Calc Estimated GFR Random Glucose Lactic Acid Lactic Acid Fup @ 2Hr Calcium Magnesium Ferritin Total Bilirubin Direct Bilirubin AST ALT Alkaline Phosphatase Lactate Dehydrogenase Troponin I High Sens C-Reactive Protein B-Natriuretic Peptide Total Protein Albumin Procalcitonin 0.43 Urine Color Urine Appearance Urine pH Ur Specific [place] Urine Protein Urine Glucose (UA) Urine Ketones Urine Blood Urine Nitrite Ur Leukocyte Esterase Urine RBC Urine WBC Ur Squamous Epith Cells Urine Bacteria Urine Mucus Ethyl Alcohol 28 Coronavirus (PCR) NEGATIVE Influenza Type A (PCR) NEGATIVE Influenza Type B (PCR) NEGATIVE RSV RNA Qual (PCR) NEGATIVE 09/24/20 09/24/20 22:02 22:04 MCV MCH MCHC RDW Plt Count MPV Immature Gran % (Auto) Neut % (Auto) Lymph % (Auto) [place] % (Auto) Eos % (Auto) Baso % (Auto) Lymph # (Auto) [place] # (Auto) Eos # (Auto) Baso # (Auto) Abs Immat Gran (auto) Absolute Neuts (auto) Absolute Nucleated RBC Nucleated RBC % (auto) Smear Tech's Comments PT INR APTT Anion Gap Estim Creat Clear Calc Estimated GFR Random Glucose Lactic Acid Lactic Acid Fup @ 2Hr 2.3 H* Calcium Magnesium Ferritin Total Bilirubin Direct Bilirubin AST ALT Alkaline Phosphatase Lactate Dehydrogenase Troponin I High Sens C-Reactive Protein B-Natriuretic Peptide Total Protein Albumin Procalcitonin Urine Color COLORLESS Urine Appearance CLOUDY Urine pH 8.0 Ur Specific [place] 1.015 Urine Protein NEG Urine Glucose (UA) NEG Urine Ketones NEG Urine Blood 3+ H Urine Nitrite POS H Ur Leukocyte Esterase 3+ H Urine RBC 10-14 H Urine WBC 30-49 H Ur Squamous Epith Cells 1+ Urine Bacteria 2+ Urine Mucus 1+ Ethyl Alcohol Coronavirus (PCR) Influenza Type A (PCR) Influenza Type B (PCR) RSV RNA Qual (PCR) Imaging Radiologist's Impressions: Impressions Chest X-Ray 09/24/20 19:20 IMPRESSION: Low lung volumes. No acute findings. Foot X-Ray 09/24/20 20:10 IMPRESSION: 1. Diffuse soft tissue swelling, particularly at the dorsum of the foot. No air or radiopaque foreign body. 2. Focal bone loss of the distal tibia at the anterior ankle joint. There are fine reticular soft tissue calcifications adjacent to this site. This could be chronic but an acute abnormality including osteomyelitis not excluded. Clinically correlate. MRI of the ankle without and with contrast would be helpful for further evaluation. 3. Severe arthropathy of the first metatarsal phalangeal joint Foot X-Ray 09/24/20 20:10 IMPRESSION: Prominent diffuse soft tissue swelling. Significant osteopenia which limits the evaluation. No definite osseous erosions. Chest CT 09/24/20 20:55 IMPRESSION: * No evidence of acute pneumonitis or consolidation. * Low lung volumes and right basilar subsegmental atelectasis. * Cardiomegaly, mild. * Ascending aortic aneurysm measures 4.9 cm. No intramural hematoma. * Moderate to severe hepatic steatosis. * Indeterminate, incompletely imaged left adrenal nodule measuring 2.[address] adrenal mass protocol for further evaluation. Assessment and Plan (1) Hyponatremia: Status: Acute (2) Cellulitis: Qualifiers: Laterality: unspecified laterality Site of cellulitis: extremity Site of cellulitis of extremity: lower extremity Qualified Code(s): L03.119 - Cellulitis of unspecified part of limb Status: Acute (3) Fluid overload: Qualifiers: Hypervolemia type: unspecified Qualified Code(s): E87.70 - Fluid overload, unspecified Status: Acute (4) Acute UTI: Status: Acute 64 year old man presenting with leg/feet cellulitis and evidence of poor circulation with dusky toes. Also noted to have hypoxemia of unclear etiology and hyponatremia and history of ETOH abuse. Cellulitis Source of infection is likely his legs/feet. Though urine had evidence of infection he has a chronic indwelling Franklin so likely represents colonization. For now start Zosyn to cover Pseudomonas and Vancomycin for MRSA for the cellulitis. Vascular surgery consult for apparent poor circulation in the lower extremities. He is hemodynamically stable at present. Hypoxia COVID negative. Improved with some supplemental oxygen. No pneumonia on CXR. Is already anticoagulated for afib so doubt this is due to any PE. Hyponatremia Could be multiple etiologies. He appears total body volume overloaded and is on diuretics and also drinks significant alcohol. Will place on fluid restriction and chek TSH, urine sodium and serum/urine osms. Suspect this is chronic so will cautiously correct sodium-aim for increase of no more than 6-8 mmol/L in 24 hours, so 128-130. ETOH abuse High risk for withdrawal. starting phenobarb protocol in ED-IM loading ordered. Afib history Continue Eliquis. Rate is stable. Hyperkalemia Low potassium diet. Give kayexalate PO and repeat labs in AM. Hypothyroidism Continue levothyroxine at outpt dose. Check TSH. DM type 2 Continue Lantus, sliding scale. DVT proph Is on Eliquis already. Code status Full code, healthcare proxy is his daughter.
[2020-09-25] MEDS: vancomycin HCL 1,000 MG, vancomycin HCL 750 MG in 0.9 % Sodium Chloride 500 ML 267.5 MG IV (02:40)
[2020-09-25] MEDS: Sodium Polystyrene Sulfon/Sorb 15 GM/60 ML ORAL.SUSP PO ×3 (02:41→13:28)
[2020-09-25 03:44] LABS: ~Lactic Acid-LAB USE ONLY 2.9 mmol/L (0.5-2.0)
[2020-09-25] MEDS: PHENobarbitaL sodium 130 MG/ML VIAL 214 MG IM ×2 (04:30→06:48)
[2020-09-25 05:19] LABS: Anion Gap 17 (12-20); Blood Urea Nitrogen 31 mg/dL (9-16); Calcium 8.1 mg/dL (8.4-10.2); Carbon Dioxide 25 mmol/L (22-29); Chloride 88 mmol/L (96-108); Creatinine Clr Calc Pharmacy 89.7; Estimated Glomerular Filt Rate 58; Glucose Random 306 mg/dL (60-115); Potassium 5.7 mmol/l (3.3-5.1); Sodium 124 mmol/L (135-145)
[2020-09-25] MEDS: Levothyroxine Sodium 112 MCG TABLET PO (06:48)
[2020-09-25] MEDS: Piperacillin Sodium/Tazobactam 3.375 GM in 0.9 % Sodium Chloride 50 ML IV ×3 (07:41→20:49)
[2020-09-25] MEDS: Metoprolol Tartrate 25 MG TABLET 12.5 MG PO ×2 (07:42→22:07)
[2020-09-25] MEDS: 0.9 % Sodium Chloride Flush 3 ML SYRINGE IVFLUSH ×2 (07:42→16:26)
[2020-09-25] MEDS: Apixaban 5 MG TABLET PO ×2 (07:43→22:08)
[2020-09-25] MEDS: Folic Acid 1 MG TABLET PO (07:43)
[2020-09-25] MEDS: Omeprazole 40 MG CAPSULE.DR PO ×2 (07:43→22:08)
[2020-09-25] MEDS: Atorvastatin Calcium 20 MG TABLET PO (07:43)
[2020-09-25] MEDS: Thiamine HCL 100 MG TABLET PO (07:43)
[2020-09-25] MEDS: Magnesium Oxide 400 MG TABLET PO (07:43)
[2020-09-25 07:51] LABS: Basophils Percent Auto 0.1 % (0-2); Hematocrit 40.4 % (42-52); Imm Gran Abs Auto 0.17 X10*3/uL (0.00-0.03); Imm Gran Pct Auto 1.6 % (0.0-0.4); Lymphocytes Absolute Auto 0.4 X10*3/uL (1.2-4.9); Lymphocytes Percent Auto 3.7 % (20-40); MANUAL DIFF FLAG SCAN; Mean Corpuscular HGB Conc 29.7 g/dl (31.0-36.0); Mean Corpuscular Hemoglobin 29.8 pg (27.0-33.0); Mean Corpuscular Volume 100.2 fL (80-98); Mean Platelet Volume 10.6 fL (9.4-12.4); Monocytes Absolute Auto 0.4 X10*3/uL (0.1-1.2); Monocytes Percent Auto 3.3 % (2-11); Neutrophils Absolute Auto 9.8 X10*3/uL (2.0-8.3); Neutrophils Percent Auto 91.3 % (45-73); Platelet Count 243 X10*3/uL (160-400); Red Blood Count 4.03 X10*6/uL (4.60-5.80); Red Cell Distribution Width 17.5 % (11.0-16.0); SCAN SMEAR FLAG 1; White Blood Count 10.8 X10*3/uL (4.8-10.8)
[2020-09-25 07:53] LABS: Glucose, Whole Blood 295 mg/dL (60-115)
[2020-09-25 08:21] LABS: Blood Urea Nitrogen 30 mg/dL (9-16); Calcium 8.1 mg/dL (8.4-10.2); Creatinine Clr Calc Pharmacy 92.6; Estimated Glomerular Filt Rate 60; Glucose Fasting 282 mg/dL (60-99); SLIDE REVIEW VERIFIED
[2020-09-25 08:35] LABS: TSH reflex Free T4 1.41 mIU/mL (0.32-4.0)
[2020-09-25 08:38] LABS: Anion Gap 21 (12-20); Carbon Dioxide 23 mmol/L (22-29); Chloride 87 mmol/L (96-108); Potassium 5.7 mmol/l (3.3-5.1); Sodium 125 mmol/L (135-145)
[2020-09-25] MEDS: Insulin Lispro 100 UNIT/ML 3 ML VIAL SUBCUT ×4 (08:57→22:09)
[2020-09-25] MEDS: methylPREDNISolone Sod Succ/PF 125 MG/2 ML VIAL 60 MG IVPUSH ×2 (08:57→16:26)
[2020-09-25] MEDS: guaiFENesin LA 600 MG TAB.ER.12H PO ×2 (08:57→22:08)
--- NOTE | 2020-09-25 09:28 | HO.PM.IMPN ---
Subjective Subjective Date of Service: 09/25/20 Interval History: seen and examined this AM reports SOB reports leg pain denies chest pain ROS General - no fevers or chills Cardiovascular - no chest pain Respiratory - +SOB Abdominal- no abdominal pain, nausea, vomiting, diarrhea Ext - b/l leg pain Physical Exam Vital Signs: Vital Signs: Last Vital Signs Temp 98.1 F 09/25/20 07:45 Pulse 95 09/25/20 07:45 Resp 20 09/25/20 07:45 BP 145/75 H 09/25/20 07:45 Pulse Ox 96 09/25/20 07:45 Body Mass Index 35.1 Const: Other: General - no acute distress, appears comfortable Cardiovascular - regular rate and rhythm, S1-S2 Lungs - diffuse wheezing, poor air entry, mild distress Abdomen - soft, nontender, no rebound or guarding Extremities - no edema bilaterally Neuro - awake and alert, no focal deficits Objective Data Current Medications Generic Name Dose Route Start Last Admin Trade Name Freq PRN Reason Stop Dose Admin Apixaban 5 mg 09/25/20 09:00 09/25/20 07:43 Apixaban 5 Mg Tablet PO 5 mg BID ADY Administration Atorvastatin Calcium 20 mg 09/25/20 09:00 09/25/20 07:43 Atorvastatin Calcium 20 Mg Tablet PO 20 mg DAILY ADY Administration Folic Acid 1 mg 09/25/20 09:00 09/25/20 07:43 Folic Acid 1 Mg Tablet PO 1 mg DAILY ADY Administration Gabapentin 300 mg 09/25/20 21:00 Gabapentin 300 Mg Capsule PO BEDTIME ADY Guaifenesin 600 mg 09/25/20 09:00 09/25/20 08:57 Guaifenesin La 600 Mg Tab.Er.12h PO 600 mg BID ADY Administration Piperacillin Sod/Tazobactam 50 mls @ 100 mls/hr 09/25/20 07:00 09/25/20 08:21 Sod 3.375 gm/ Sodium Chloride IV Infused Q6H ADY Infusion Vancomycin HCl 1,000 mg/ 270 mls @ 270 mls/hr 09/25/20 15:00 Sodium Chloride IV Q12H [facility] Insulin Glargine 22 unit 09/25/20 21:00 Insulin Glargine,Hum.Rec.Anlog 100 Unit/Ml 10 Ml Vial SUBCUT BEDTIME [facility] Insulin Human Lispro 0 unit 09/25/20 07:30 09/25/20 08:57 Insulin Lispro 100 Unit/Ml 3 Ml Vial SUBCUT 6 unit QIDACHS [facility] Administration Protocol Levalbuterol HCl 1.25 mg 09/25/20 12:00 Levalbuterol Hcl 1.25 Mg/3 Ml Vial.Neb INHALE RQ4H WHILE AWAKE [facility] Levothyroxine Sodium 112 mcg 09/25/20 06:00 09/25/20 06:48 Levothyroxine Sodium 112 Mcg Tablet PO 112 mcg DAILY@0600 [facility] Administration Magnesium Oxide 400 mg 09/25/20 09:00 09/25/20 07:43 Magnesium Oxide 400 Mg Tablet PO 400 mg DAILY [facility] Administration Medication 1 each 09/25/20 09:00 No Benzodiazepines MISCELLANE DAILY [facility] Metoprolol Tartrate 12.5 mg 09/25/20 09:00 09/25/20 07:42 Metoprolol Tartrate 25 Mg Tablet PO 12.5 mg BID [facility] Administration Protocol Omeprazole 40 mg 09/25/20 09:00 09/25/20 07:43 Omeprazole 40 Mg Capsule. PO 40 mg BID [facility] Administration Pharmacy Consult 1 each 09/24/20 20:00 Consult Rx Perform Med Rec MISCELLANE ONCE PRN Consult order Pharmacy Consult 1 each 09/24/20 23:37 Consult Rx Vancomycin Dosing MISCELLANE DAILY PRN Consult order Pharmacy Consult 1 each 09/25/20 06:46 Consult Rx Vancomycin Dosing MISCELLANE DAILY PRN Consult order Phenobarbital 60 mg 09/25/20 21:00 Phenobarbital 30 Mg Tablet PO 09/27/20 09:01 BID [facility] Protocol Phenobarbital 30 mg 09/27/20 21:00 Phenobarbital 30 Mg Tablet PO 09/29/20 09:01 BID [facility] Protocol Phenobarbital 30 mg 09/30/20 09:00 Phenobarbital 30 Mg Tablet PO 10/01/20 09:01 DAILY [facility] Protocol Sodium Chloride 3 ml 09/25/20 08:00 09/25/20 07:42 0.9 % Sodium Chloride Flush 3 Ml Syringe IVFLUSH 3 ml QSHIFT [facility] Administration Thiamine HCl 100 mg 09/25/20 09:00 09/25/20 07:43 Thiamine Hcl 100 Mg Tablet PO 100 mg DAILY [facility] Administration Labs CBC & Chem 7: 09/25/20 05:51 09/25/20 05:51 Assessment and Plan (1) Hyponatremia: Status: Acute (2) Cellulitis: Status: Acute Assessment and Plan: This is a 64 yo M with multiple medical problems who is admitted for: 1. Chronic venous stasis with superimposed cellulitis continue broad spectrum antibiotics for the time being not septic (tachycardia due to a. fib) f/u cultures ID and Vascular evals 2. Hypoxia ? CHF vs COPD BNP is low, but clinically appears overloaded; check echo, trial of lasix IV steriods and scheduled updrafts 3. HypoNa likely hypervoluemic check urine studies consult nephrology 4. A. Fib rates improved continue metoprolol continue eliquis 5. Alcohol abuse and dependence started on phenobarb monitor lytes cessation strongly encouraged 6. DM basal+bolus diabetic diet 7. Chronic pain gabapentin prn pain meds Full Code DVT pptx, Eliquis
[2020-09-25 09:59] LABS: Osmolality Urine 287 mosm/kg (373-1093)
[2020-09-25] MEDS: levalbuterol HCL 1.25 MG/3 ML VIAL.NEB INHALE ×3 (11:22→20:39)
[2020-09-25 11:37] LABS: Glucose, Whole Blood 274 mg/dL (60-115)
[2020-09-25 13:26] LABS: Pt Ventilation O2% 2 L
--- NOTE | 2020-09-25 14:11 | MHC.CM.PN ---
talked with pts daughter and hcp paulette phillip [phone] who explins that pt has a liasion she believes thru [facility] ? [facility] johnson [phone] who coordinates all his care he has pcas8-2, 2to 5, 5 to 9 and 9pm to midnight he has vna thru [facility] and comes to wound clinic here at [facility] ..his pcp is thru [facility] ,additionally he is in an motorized w/c that [facility] does not have with him dc plan is for pt to go home with resumption of sevcies coordinated thru [facility]
--- NOTE | 2020-09-25 14:22 | MHC.CM.PN ---
pts cecilio valladares was also working on helping pt get into detox
[2020-09-25] MEDS: vancomycin HCL 1,000 MG in 0.9 % Sodium Chloride 250 ML 270 MG IV (14:25)
[2020-09-25 14:48] LABS: Anion Gap 17 (12-20); Blood Urea Nitrogen 28 mg/dL (9-16); Calcium 7.9 mg/dL (8.4-10.2); Carbon Dioxide 25 mmol/L (22-29); Chloride 87 mmol/L (96-108); Creatinine Clr Calc Pharmacy 95.8; Estimated Glomerular Filt Rate > 60; Glucose Random 332 mg/dL (60-115); Potassium 5.2 mmol/l (3.3-5.1); Sodium 124 mmol/L (135-145)
[2020-09-25 15:28] LABS: PCO2 VBG 65 mmhg; PO2 VBG 37 mmhg; pH VBG 7.23 (7.32-7.43)
[2020-09-25 15:29] LABS: HCO3 VBG 27 mmol/L; Oxygen Saturation VBG 67.8 %
--- NOTE | 2020-09-25 16:14 | PC.NURSE ---
at bedside. making this RN aware that patient needs to be on high flow oxygen for min 1 hour. This RN on phone with resp. therapist. Awaiting set up of high flow. New orders for VBG's to be drawn at 1730.
[2020-09-25 16:19] LABS: Glucose, Whole Blood 341 mg/dL (60-115)
[2020-09-25 17:29] LABS: Amphetamine Screen Urine Not Detected (Not Detect); Barbiturates, Urine POSITIVE (Not Detect); Benzodiazepines Screen Urine Not Detected (Not Detect); Cannabinoid Screen Urine POSITIVE (Not Detect); Cocaine Screen Urine Not Detected (Not Detect); Opiate Screen Urine Not Detected (Not Detect); Phencyclidine Screen Urine Not Detected (Not Detect)
[2020-09-25 17:46] LABS: PCO2 VBG 57 mmhg
[2020-09-25 17:47] LABS: Base Excess VBG 0.4 mmol/L; Blood Gas Serial # 5414; HCO3 VBG 28 mmol/L; Oxygen Saturation VBG 91.9 %; PO2 VBG 63 mmhg
[2020-09-25 17:57] LABS: Ammonia 40 umol/L (13-55)
--- NOTE | 2020-09-25 18:58 | CONS_ITS ---
DATE OF SERVICE: REASON FOR CONSULTATION: I was called to see this patient to assist in the management of hyponatremia. To summarize, Cristian is a 64-year-old man with obesity, chronic alcohol abuse, comes in because of dyspnea and worsening leg and feet wounds. He has been diagnosed with cellulitis. Currently, he is on vancomycin. In the meantime, was found to have hyponatremia with the serum sodium of 122 millimoles, with mild hyperkalemia with potassium 5.4 and hence this consultation. PAST MEDICAL HISTORY: Ongoing medical problems include history of atrial fibrillation, alcohol abuse, obesity, cellulitis, CVA, diabetes, hypertension, hypothyroidism, indwelling catheter, history of bladder cancer, status post neobladder according to patient. PAST SURGICAL HISTORY: As above. SOCIAL HISTORY: Consumes 100% proof alcohol almost daily. He does not smoke. He denies any drug abuse. ALLERGIES: HE IS ALLERGIC TO AMLODIPINE, TYLENOL, ASPIRIN, CELEBREX, MORPHINE, OTHER NSAIDS, OXYCODONE, TRAMADOL. MEDICATIONS: At time of admission were , vitamin C, calcium with vitamin D, insulin, levothyroxine, omeprazole, torsemide 20 mg b.i.d., and all other medications were reviewed. REVIEW OF SYSTEM: He has no headache, nausea, or vomiting. He has leg wounds. No urinary symptoms. No fever. No rash. All other systems were reviewed. EXAMINATION: GENERAL: Cristian is a middle-aged man who is obese. The general hygiene is rather poor. HEENT: Mucosa is dry. LUNGS: Air entry equal. No rales. HEART: No gallop or rub. ABDOMEN: Obese, soft, nontender. NEURO: He is alert and awake. No asterixis. EXTREMITIES: With some erythema, excoriation, and redness in the legs. VITAL SIGNS: Blood pressure 134/84, pulse 101, temperature 98.2. LABORATORY DATA: Hemoglobin 12.0, WBC 10.8, platelets 243,000. Sodium 124, potassium 5.2, BUN 28, creatinine 1.18, blood sugar 332, calcium 7.9. Urine showed 3+ protein, 3+ blood with nitrites, 20 bacteria. Urine osmolality 287. Urine sodium 21. Alcohol level 28. IMPRESSION: 64-year-old man with hyponatremia and hyperkalemia with mild chronic kidney disease. The hyponatremia is most likely due to nonosmotic ADH release. The urine osmolality is inappropriately elevated in the setting of hyponatremia. He does have mild hyperkalemia with mild chronic kidney disease as well. Ongoing obstructive uropathy should be ruled out. RECOMMENDATIONS: My recommendation would be to keep him on oral free water restriction of 1 L per 24 hours. Watch intake and output. Keep him on a low-potassium diet. If needed, he may require Kayexalate to keep the potassium less than 5.[address] chest did reveal a left adrenal adenoma. He needs a CT abdomen to evaluate this adenoma as well as to evaluate the kidneys to make sure he has no hydronephrosis. There is no indication to treat him with hypertonic saline or urea at this time. We will follow him with the team. Pablito Hernandez MD BPA/MODL / [phone]
[2020-09-25 21:16] LABS: Glucose, Whole Blood 373 mg/dL (60-115)
[2020-09-25] MEDS: Insulin Glargine,Hum.rec.anlog 100 UNIT/ML 10 ML VIAL 22 UNIT SUBCUT (22:08)
[2020-09-26] VITALS (9 sets, daily range): BP systolic 135–155; BP diastolic 73–98; PULSE 65–107; RESP 16–22; TEMP 36.3–36.7; O2SAT 91–100
--- NOTE | 2020-09-26 | CT_ITS ---
EXAMINATION: CT ABDOMEN AND PELVIS WITHOUT CONTRAST CLINICAL INFORMATION: Evaluate for hydronephrosis. Left adrenal nodule. COMPARISON: CT chest dated 09/24/2020 TECHNIQUE: Multidetector volumetric imaging was performed from the superior aspect of the liver through the pubic symphysis. Sagittal and coronal reformatted images were obtained on the technologist's workstation. This CT examination was performed using dose optimization techniques as appropriate, variously including the following: *Automated exposure control *Adjustment of mA and/or kV according to patient size (this includes techniques or standardized protocols for targeted exams where dose is matched to indication/reason for exam; i.e. extremities or head) *Use of iterative reconstruction technique DLP: 1010 mGy-cm FINDINGS: LUNG BASES: Asymmetric elevation of the right hemidiaphragm associated with dependent/relaxed of subsegmental atelectasis. Ascending aortic aneurysm measuring 4.9 cm. Cardiomegaly and triple vessel coronary calcifications. LIVER, GALLBLADDER, AND BILIARY TREE: Moderate to severe diffuse hepatic steatosis. No focal liver lesions. No intra or extrahepatic biliary dilatation. Trace pneumobilia present within the lateral segment. Cholecystectomy. PANCREAS: Unremarkable. SPLEEN: Unremarkable. ADRENAL GLANDS: There is a 2.7 x 2.3 x 2.6 cm left adrenal nodule measuring 40 Hounsfield units. Right adrenal gland unremarkable. KIDNEYS AND URETERS: Multifocal bilateral renal cortical scarring is present. There is a 3.2 cm simple cyst in the lateral cortex of the right kidney, and an indeterminant 1.1 cm lesion within the posterior inferior cortex of the right kidney. There are a few additional subcentimeter lesions within the left renal cortex which are indeterminate on this unenhanced exam. No hydronephrosis. The ureters course inferiorly and anteriorly within the abdomen into a neobladder. There are bilateral nonobstructive intrarenal calculi, staghorn morphology and some areas. Left kidney: There is a is a 2.2 cm stone in the upper pole located 13.4 cm from the posterior axillary line with an attenuation of 400 HU. There is a 1.0 cm stone measuring 560 HU within the posterior interpolar region, 13.8 cm posterior axillary line. Within the lower pole there is a 1.1 cm calculus located 17.4 cm from the posterior axillary line. Right kidney: There is a 1.3 cm staghorn calculus within the interpolar region located 13.8 cm from the posterior axillary line.. There is a 5 x 2 mm stone within the lower pole and a 3 mm stone within the upper pole. BLADDER: [place] bladder surgically absent. Neobladder contains a [place] catheter. GASTROINTESTINAL TRACT: Status post partial small bowel resection for creation of the neobladder. Otherwise, there are no bowel related abnormalities. Normal appendix. ABDOMINAL WALL: Small fat-containing umbilical/periumbilical hernia. LYMPH NODES: Normal. VASCULAR: Aorta is atherosclerotic. Status post aortobiiliac endovascular stent graft placement. 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 The left internal iliac artery has been embolized. PELVIC VISCERA: Prostatectomy. No abnormal pelvic mass. OSSEOUS STRUCTURES: Severe thoracolumbar spondylosis with ankylosis of the L3-L4 vertebral bodies and S-shaped lumbar scoliosis. Severe left hip arthrosis with [id number] contact. Intact right total hip arthroplasty. Healed bilateral ischial fractures. CT/CT abdomen pelvis wo con IMPRESSION: * No hydronephrosis or evidence of obstructive uropathy. * Status post radical cystoprostatectomy with creation of a neobladder. The ureters insert upon the neobladder without evidence of obstruction. * Bilateral nonobstructive intrarenal calculi, some of which are staghorn morphology as described above. * Multifocal bilateral renal cortical scarring present, likely a combination of previous infections and infarcts. * Bilateral renal cysts, some of which are technically indeterminate on this unenhanced exam. * Ascending aortic aneurysm measuring 4.9 cm redemonstrated. * Status post aortobiiliac endovascular stent graft, with aneurysmal dilatation of the left common iliac artery measuring 3.6 cm. * Moderate to severe diffuse hepatic steatosis.
[2020-09-26] MEDS: Piperacillin Sodium/Tazobactam 3.375 GM in 0.9 % Sodium Chloride 50 ML IV ×3 (00:48→13:56)
[2020-09-26] MEDS: 0.9 % Sodium Chloride Flush 3 ML SYRINGE IVFLUSH ×3 (00:49→23:49)
[2020-09-26] MEDS: methylPREDNISolone Sod Succ/PF 125 MG/2 ML VIAL 60 MG IVPUSH ×4 (00:49→23:48)
[2020-09-26] MEDS: vancomycin HCL 1,000 MG in 0.9 % Sodium Chloride 250 ML 270 MG IV (02:41)
--- NOTE | 2020-09-26 03:48 | PM.EVENT ---
Event Note Date of Service: 09/26/20 Event Note: Patient hallucinating. Will restart his phenobarbital for alcohol withdrawals
[2020-09-26] MEDS: PHENobarbitaL sodium 130 MG/ML VIAL 427 MG IM (04:28)
[2020-09-26] MEDS: Levothyroxine Sodium 112 MCG TABLET PO (06:42)
[2020-09-26 07:06] LABS: PCO2 VBG 61 mmhg; PO2 VBG 71 mmhg; pH VBG 7.31 (7.32-7.43)
[2020-09-26 07:07] LABS: Base Excess VBG 2.4 mmol/L; HCO3 VBG 30 mmol/L; Oxygen Saturation VBG 93.4 %
[2020-09-26 07:13] LABS: Hematocrit 35.5 % (42-52); Hemoglobin 10.8 g/dl (14.0-18.0); Mean Corpuscular HGB Conc 30.4 g/dl (31.0-36.0); Mean Corpuscular Hemoglobin 29.6 pg (27.0-33.0); Mean Corpuscular Volume 97.3 fL (80-98); Mean Platelet Volume 10.1 fL (9.4-12.4); Platelet Count 213 X10*3/uL (160-400); Red Blood Count 3.65 X10*6/uL (4.60-5.80); White Blood Count 9.1 X10*3/uL (4.8-10.8)
[2020-09-26 07:22] LABS: Glucose, Whole Blood 346 mg/dL (60-115)
--- NOTE | 2020-09-26 07:24 | PC.NURSE ---
Addendum entered by Valencia Chapman RN 09/26/20 07:26: Patient reassessed, resting in bed eyes, closed easily arrousable, mild tremor, no complaints at this time. Original Note: Patient had increase in CIWA score. Endorsing, visual hallucinations, tremor, anxiety, alert and oriented scoring 13. Discussed with and patient restarted on Phenobarb. Phenobarb given as ordered.
[2020-09-26 07:35] LABS: Anion Gap 14 (12-20); Blood Urea Nitrogen 25 mg/dL (9-16); Calcium 7.8 mg/dL (8.4-10.2); Carbon Dioxide 28 mmol/L (22-29); Chloride 86 mmol/L (96-108); Creatinine Clr Calc Pharmacy 120.3; Estimated Glomerular Filt Rate > 60; Glucose Random 295 mg/dL (60-115); Potassium 4.7 mmol/l (3.3-5.1); Sodium 123 mmol/L (135-145)
[2020-09-26] MEDS: Insulin Lispro 100 UNIT/ML 3 ML VIAL SUBCUT ×4 (08:48→21:52)
[2020-09-26] MEDS: Atorvastatin Calcium 20 MG TABLET PO (08:48)
[2020-09-26] MEDS: Omeprazole 40 MG CAPSULE.DR PO ×2 (08:48→21:50)
[2020-09-26] MEDS: Apixaban 5 MG TABLET PO ×2 (08:48→21:50)
[2020-09-26] MEDS: Folic Acid 1 MG TABLET PO (08:48)
[2020-09-26] MEDS: guaiFENesin LA 600 MG TAB.ER.12H PO ×2 (08:49→21:50)
[2020-09-26] MEDS: Metoprolol Tartrate 25 MG TABLET 12.5 MG PO ×2 (08:49→21:50)
[2020-09-26] MEDS: Thiamine HCL 100 MG TABLET PO (08:49)
[2020-09-26] MEDS: Magnesium Oxide 400 MG TABLET PO (08:49)
--- NOTE | 2020-09-26 09:02 | HO.PM.IMPN ---
Subjective Subjective Date of Service: 09/26/20 Interval History: seen and examined this AM overnight events reviewed, was reportedly hallucinating this AM, drowsy but easily awakens and fully AAOx3 there after reports being hungry and wanting to eat ROS General - no fevers or chills Cardiovascular - no chest pain Respiratory - +SOB Abdominal- no abdominal pain, nausea, vomiting, diarrhea Ext - b/l leg pain Physical Exam Vital Signs: Vital Signs: Last Vital Signs Temp 98.0 F 09/26/20 08:00 Pulse 65 09/26/20 08:49 Resp 20 09/26/20 08:00 BP 136/78 09/26/20 08:49 Pulse Ox 94 09/26/20 08:00 Body Mass Index 35.1 Const: Other: General - no acute distress, appears comfortable Cardiovascular - regular rate and rhythm, S1-S2 Lungs - diffuse wheezing, poor air entry, mild distress Abdomen - soft, nontender, no rebound or guarding Extremities - no edema bilaterally Neuro - awake and alert, no focal deficits Skin - bilateral chronic skin changes Objective Data Current Medications Generic Name Dose Route Start Last Admin Trade Name Freq PRN Reason Stop Dose Admin Apixaban 5 mg 09/25/20 09:00 09/26/20 08:48 Apixaban 5 Mg Tablet PO 5 mg BID ADY Administration Atorvastatin Calcium 20 mg 09/25/20 09:00 09/26/20 08:48 Atorvastatin Calcium 20 Mg Tablet PO 20 mg DAILY ADY Administration Folic Acid 1 mg 09/25/20 09:00 09/26/20 08:48 Folic Acid 1 Mg Tablet PO 1 mg DAILY ADY Administration Guaifenesin 600 mg 09/25/20 09:00 09/26/20 08:49 Guaifenesin La 600 Mg Tab.Er.12h PO 600 mg BID ADY Administration Piperacillin Sod/Tazobactam 50 mls @ 100 mls/hr 09/25/20 07:00 09/26/20 06:42 Sod 3.375 gm/ Sodium Chloride IV 100 mls/hr Q6H ADY Administration Vancomycin HCl 1,000 mg/ 270 mls @ 270 mls/hr 09/25/20 15:00 09/26/20 04:32 Sodium Chloride IV Infused Q12H ADY Infusion Insulin Glargine 22 unit 09/25/20 21:00 09/25/20 22:08 Insulin Glargine,Hum.Rec.Anlog 100 Unit/Ml 10 Ml Vial SUBCUT 22 unit BEDTIME [facility] Administration Insulin Human Lispro 0 unit 09/25/20 07:30 09/26/20 08:48 Insulin Lispro 100 Unit/Ml 3 Ml Vial SUBCUT 8 unit QIDACHS [facility] Administration Protocol Levalbuterol HCl 1.25 mg 09/25/20 12:00 09/26/20 08:07 Levalbuterol Hcl 1.25 Mg/3 Ml Vial.Neb INHALE Not Given RQ4H WHILE AWAKE [facility] Levothyroxine Sodium 112 mcg 09/25/20 06:00 09/26/20 06:42 Levothyroxine Sodium 112 Mcg Tablet PO 112 mcg DAILY@0600 [facility] Administration Magnesium Oxide 400 mg 09/25/20 09:00 09/26/20 08:49 Magnesium Oxide 400 Mg Tablet PO 400 mg DAILY [facility] Administration Medication 1 each 09/26/20 09:00 No Benzodiazepines MISCELLANE DAILY [facility] Methylprednisolone Sodium Succinate 60 mg 09/25/20 16:00 09/26/20 08:47 Methylprednisolone Sod Succ/Pf 125 Mg/2 Ml Vial IVPUSH 60 mg Q8H [facility] Administration Metoprolol Tartrate 12.5 mg 09/25/20 09:00 09/26/20 08:49 Metoprolol Tartrate 25 Mg Tablet PO 12.5 mg BID [facility] Administration Protocol Omeprazole 40 mg 09/25/20 09:00 09/26/20 08:48 Omeprazole 40 Mg Capsule. PO 40 mg BID [facility] Administration Pharmacy Consult 1 each 09/24/20 20:00 Consult Rx Perform Med Rec MISCELLANE ONCE PRN Consult order Pharmacy Consult 1 each 09/24/20 23:37 Consult Rx Vancomycin Dosing MISCELLANE DAILY PRN Consult order Pharmacy Consult 1 each 09/25/20 06:46 Consult Rx Vancomycin Dosing MISCELLANE DAILY PRN Consult order Sodium Chloride 3 ml 09/25/20 08:00 09/26/20 00:49 0.9 % Sodium Chloride Flush 3 Ml Syringe IVFLUSH 3 ml QSHIFT [facility] Administration Thiamine HCl 100 mg 09/25/20 09:00 09/26/20 08:49 Thiamine Hcl 100 Mg Tablet PO 100 mg DAILY [facility] Administration Labs CBC & Chem 7: 09/26/20 06:03 09/26/20 06:03 Microbiology Microbiology Results: Microbiology 09/24/20 19:52 Blood - Venous Blood Culture - Preliminary No growth after 24 hours. 09/24/20 19:48 Blood - Venous Blood Culture - Preliminary No growth after 24 hours. 09/24/20 22:25 Urine [place] Urine Culture - Preliminary Assessment and Plan (1) Hyponatremia: Status: Acute (2) Cellulitis: Status: Acute Assessment and Plan: This is a 64 yo M with multiple medical problems who is admitted for: 1. Chronic venous stasis with superimposed cellulitis continue vancomyin/zosyn day #2 ID and vascular consults f/u cultures 2. Acute Respiratory failure with hypoxia / hypercarbia multifactorial including probable undiagnosed copd + MARIELA + obesity hypoventilation syndrome + ? CHF O2 to keep saturation 88-92 continue updrafts and steroids will consult pulmonary echo today 3. HypoNa consistant with [facility] on board -- follow their recs: fluid restrict, check ct abd to rule out obstruction 4. A. Fib rates improved continue metoprolol continue eliquis 5. Alcohol abuse and dependence stop phenobarb - causing excessive sedation may need PRN ativan if truly going into withdrawal suspect his 'hallucinations' overnight maybe have been related to hypercarbia and not alcohol withdrawal. He has received (initial 3 IM doses) and another IM dose early this AM. Stop further IM and PO phenobarb 6. DM basal+bolus diabetic diet 7. Chronic pain hold sedative meds Full Code DVT pptx, Eliquis he reports daughter is first HCP and ex- is second HCP. Gives permission to talk to either.
--- NOTE | 2020-09-26 11:00 | CA_ITS ---
Transthoracic Echocardiogram Patient (Last, First, Middle): Cristian Roque, Gender: Male Date of : 1955 Age: 64 Procedure Date: 09/26/2020 Procedure Type: Transthoracic Echocardiogram Location: [facility] [place] Height: 195.58 cm Weight: 133.81 kg BSA: 2.64 m2 Heart Rate: bpm BP: 147 / 91 mmHg Endorsement Clerk: Referring MD: Jus Ocampo MD Symptoms: a. fib, ? chf Study Quality: Technically Difficult due to body habitus ECG Rhythm: Atrial Fibrillation Conclusions: - The left ventricular systolic function is normal. The visually estimated ejection fraction is between 55-60%. - Moderately increased right ventricular cavity size. - No obvious valvular pathology seen on this study. - There is moderate dilatation of the ascending aorta measuring 4.60 cm. Findings Left Ventricle Normal left ventricular cavity size. There is moderately increased left ventricular wall thickness. The left ventricular systolic function is normal. The visually estimated ejection fraction is between 55-60%. Regional wall motion abnormalities can not be excluded due to suboptimal endocardial definition. Diastolic function is indeterminate on the basis of available data. Severe focal asymmetric hypertrophy at the basal septum. Right Ventricle The right ventricle was not well visualized. Moderately increased right ventricular cavity size. Atria The left atrium is normal in size. The right atrium is normal in size. Aortic Valve There is a normal trileaflet aortic valve. There is no aortic valve stenosis. There is trace (trivial) aortic valve regurgitation. Mitral Valve The mitral valve appears normal. There is trace mitral valve regurgitation. There is no mitral valve stenosis. Pulmonic Valve The pulmonic valve was not well visualized. Tricuspid Valve Normal tricuspid valve structure. There is mild tricuspid valve regurgitation. The right ventricular systolic pressure is normal. The right ventricular systolic pressure is 30 mmHg. Great Vessels There is moderate dilatation of the ascending aorta measuring 4.60 cm. Venous The inferior vena cava was not well visualized. Pericardium/Pleural There is no evidence of pericardial effusion. Prior Study Comparison No prior study available for comparison. Recommendations, Care & Conclusions No obvious valvular pathology seen on this study. Measurements 2D Linear Measurements IVSd: 1.24 0.6-0.9/0.6-1.0 cm LVIDd: 4.43 3.9-5.3/4.2-5.9 cm LVIDd Index: 1.68 2.4-3.2/2.2-3.1 cm/m2 LVIDs: 3.14 2.0-3.6 cm LVPWd: 1.26 0.7-1.1 cm Ao Root: 4.40 2.1-3.5 cm LA Diam: 3.60 2.7-3.8/3.0-4.0 cm LAIDs Index: 1.36 1.5-2.3 cm/m2 LV Mass: 255.71 67-162/88-224 g LV Mass Index: 96.86 43-95/49-115 g/m2 LVOT Diam: 2.60 3.0+(-)1.3 cm Mitral Valve MV Pk E: 1.18 MV Decel Time: 211.00 E'Lateral: 14.60 E'Medial: 7.74 E/E' Med: 15.20 E/E' Lat: 8.10 PHT: 62.00 MVA PHT: 3.55 Decel [place]: 5.58 Aortic Valve AoV Pk Martin: 1.09 AoV Mn Martin: 0.73 AoV VTI: 0.24 AoV Pk Grad: 5.00 Aov Mn Grad: 3.00 VIJAY Cont.VTI: 2.68 LVOT LVOT Pk Martin: 0.57 LVOT Mn Martin: 0.38 LVOT VTI: 0.12 LVOT Pk Grad: 1.00 LVOT Mn Grad: 1.00 LVOT Diam: 2.60 LVOT Area: 5.31 Diastolic Function MV Pk E: 1.18 E'Medial: 7.74 E/E' Med: 15.20 E' Laterial: 14.60 E/E' Lat: 8.10 Tricuspid Valve TR Pk Martin: 2.59 TR Pk Grad: 27.00 RA Press: 3.00 RVSP: 30.00 Great Vessels Aorta Ao Root-2D: 4.40 2.0-3.7 cm Ao Asc: 4.60 2.1-3.4 cm Pulmonary Valve PV Pk Martin: 0.90 Peak PV Grad: 3.00 Updated in Other Vendor System with Status of Final Chauncey Montenegro MD electronically signed on 09/26/2020 4:04:56 PM with status of Final
[2020-09-26 11:02] LABS: Glucose, Whole Blood 276 mg/dL (60-115)
[2020-09-26] MEDS: levalbuterol HCL 1.25 MG/3 ML VIAL.NEB INHALE ×2 (12:20→21:16)
--- NOTE | 2020-09-26 13:08 | PM.PNNEP ---
Subjective Subjective Date of Service: 09/26/20 Interval history: seen this AM Events noted Physical Exam Vital Signs: Vital Signs: Last Vital Signs Temp 97.6 F 09/26/20 11:07 Pulse 92 09/26/20 11:35 Resp 22 H 09/26/20 11:07 BP 135/73 09/26/20 11:07 Pulse Ox 91 L 09/26/20 11:07 Body Mass Index 35.1 Const: General: no acute distress Neck: Neck: Yes no JVD Resp: Auscultation: rhonchi Cardio: Heart sounds: no rubs GI: Palpation (GI): Soft to palpation Auscultation: normal bowel sounds Neuro: Motor exam (neuro): no asterixis Objective Data Labs CBC & Chem 7: 09/26/20 06:03 09/26/20 06:03 Labs: Laboratory Results - last 24 hr 09/25/20 09/25/20 09/25/20 13:18 13:48 15:20 WBC RBC Hgb Hct MCV MCH MCHC RDW Plt Count MPV Absolute Nucleated RBC Nucleated RBC % (auto) ABG pH TNP ABG pCO2 TNP ABG pO2 TNP ABG HCO3 TNP ABG O2 Saturation TNP ABG Base Excess TNP VBG pH 7.23 L VBG pCO2 65 VBG pO2 37 VBG HCO3 27 VBG O2 Saturation 67.8 VBG Base Excess -2.0 Oxygen Given 2 L Sodium 124 L Potassium 5.2 H Chloride 87 L Carbon Dioxide 25 Anion Gap 17 BUN 28 H Creatinine 1.18 Estim Creat Clear Calc 95.8 Estimated GFR > 60 POC Glucose Random Glucose 332 H Calcium 7.9 L Ammonia Urine Opiates Screen Ur Barbiturates Screen Ur Phencyclidine Scrn Ur Amphetamines Screen U Benzodiazepines Scrn Urine Cocaine Screen U Marijuana (THC) Screen 09/25/20 09/25/20 09/25/20 16:10 17:34 17:34 WBC RBC Hgb Hct MCV MCH MCHC RDW Plt Count MPV Absolute Nucleated RBC Nucleated RBC % (auto) ABG pH ABG pCO2 ABG pO2 ABG HCO3 ABG O2 Saturation ABG Base Excess VBG pH 7.30 L VBG pCO2 57 VBG pO2 63 VBG HCO3 28 VBG O2 Saturation 91.9 VBG Base Excess 0.4 Oxygen Given Sodium Potassium Chloride Carbon Dioxide Anion Gap BUN Creatinine Estim Creat Clear Calc Estimated GFR POC Glucose 341 H Random Glucose Calcium Ammonia 40 Urine Opiates Screen Ur Barbiturates Screen Ur Phencyclidine Scrn Ur Amphetamines Screen U Benzodiazepines Scrn Urine Cocaine Screen U Marijuana (THC) Screen 09/25/20 09/25/20 09/26/20 21:10 Unknown 06:03 WBC RBC Hgb Hct MCV MCH MCHC RDW Plt Count MPV Absolute Nucleated RBC Nucleated RBC % (auto) ABG pH ABG pCO2 ABG pO2 ABG HCO3 ABG O2 Saturation ABG Base Excess VBG pH 7.31 L VBG pCO2 61 VBG pO2 71 VBG HCO3 30 VBG O2 Saturation 93.4 VBG Base Excess 2.4 Oxygen Given Sodium Potassium Chloride Carbon Dioxide Anion Gap BUN Creatinine Estim Creat Clear Calc Estimated GFR POC Glucose 373 H* Random Glucose Calcium Ammonia Urine Opiates Screen Not Detected Ur Barbiturates Screen POSITIVE H Ur Phencyclidine Scrn Not Detected Ur Amphetamines Screen Not Detected U Benzodiazepines Scrn Not Detected Urine Cocaine Screen Not Detected U Marijuana (THC) Screen POSITIVE H 09/26/20 09/26/20 09/26/20 06:03 06:03 07:19 WBC 9.1 RBC 3.65 L Hgb 10.8 L Hct 35.5 L MCV 97.3 MCH 29.6 MCHC 30.4 L RDW 17.0 H Plt Count 213 MPV 10.1 Absolute Nucleated RBC 0.000 Nucleated RBC % (auto) 0.0 ABG pH ABG pCO2 ABG pO2 ABG HCO3 ABG O2 Saturation ABG Base Excess VBG pH VBG pCO2 VBG pO2 VBG HCO3 VBG O2 Saturation VBG Base Excess Oxygen Given Sodium 123 L Potassium 4.7 Chloride 86 L Carbon Dioxide 28 Anion Gap 14 BUN 25 H Creatinine 0.94 Estim Creat Clear Calc 120.3 Estimated GFR > 60 POC Glucose 346 H Random Glucose 295 H Calcium 7.8 L Ammonia Urine Opiates Screen Ur Barbiturates Screen Ur Phencyclidine Scrn Ur Amphetamines Screen U Benzodiazepines Scrn Urine Cocaine Screen U Marijuana (THC) Screen 09/26/20 10:56 WBC RBC Hgb Hct MCV MCH MCHC RDW Plt Count MPV Absolute Nucleated RBC Nucleated RBC % (auto) ABG pH ABG pCO2 ABG pO2 ABG HCO3 ABG O2 Saturation ABG Base Excess VBG pH VBG pCO2 VBG pO2 VBG HCO3 VBG O2 Saturation VBG Base Excess Oxygen Given Sodium Potassium Chloride Carbon Dioxide Anion Gap BUN Creatinine Estim Creat Clear Calc Estimated GFR POC Glucose 276 H Random Glucose Calcium Ammonia Urine Opiates Screen Ur Barbiturates Screen Ur Phencyclidine Scrn Ur Amphetamines Screen U Benzodiazepines Scrn Urine Cocaine Screen U Marijuana (THC) Screen Microbiology Microbiology Results: Microbiology 09/24/20 22:25 Urine [place] Urine Culture - Final 09/24/20 19:52 Blood - Venous Blood Culture - Preliminary No growth after 24 hours. 09/24/20 19:48 Blood - Venous Blood Culture - Preliminary No growth after 24 hours. Assessment & Plan Assessment and plan (1) Hyponatremia: Problem details: Hypotonic hyponatremia Multifactorial - alcohol and excessive free water intake. Low urine Na suggestive of hypovolemia Suggest to RESTRICT PO water intake. Goal pNa > 130 If Na drops [id number] ,would ADD UREA powder No indication for 3% NaCl Status: Acute Time Spent With Patient Time: Total time spent is greater than 50% in coordination of care (as documented) at patient's floor/unit and/or counseling patient:
[2020-09-26 14:52] LABS: Vancomycin Trough 16.9 mcg/mL (10.0-20.0)
--- NOTE | 2020-09-26 15:12 | W.PM.IDCN ---
History of Present Illness Data of Consult Service Date: 09/26/20 Primary Care Provider: Unknown Physician HPI Reason for consult: leg/foot redness He presents to hospital with dry cough and LE weakness He is being treated for alcohol use disorder with Phenobarbital in house He notices that legs are more swollen but no pus or fever or chills He has chronic wounds legs and sees Wound Clinic Review of Systems Review of Systems: Yes all other systems are reviewed and are negative PMFSH Past Medical History Medical History Afib Alcohol abuse Cardiac defibrillator in place Cellulitis CVA (cerebral vascular accident) Diabetes Dyslipidemia HTN (hypertension) Hypothyroid Indwelling catheter present on admission Functional capacity: wheelchair bound Social History Social History Household Members: Family Housing: Apartment Do you presently have visiting nurse or other home services: Yes Alcohol intake: current Alcohol type: beer and hard liquor Smoking Status: Unknown if ever smoked Smoked in Last 30 Days: No Patient Interested in Nicotine Replacement: No Patient Given Instructions on How to Stop Smoking: No Second Hand Smoke Exposure: No Use of substances other than those prescribed or required for medical reasons: Yes Substance Use Type: Marijuana Substance Use Frequency: Monthly Last Used Substance: Weeks (ago) Currently Displaying Signs/Symptoms of Drug Intoxication Withdrawal: No Any prior treatment program specific to substance use: No Have you been hit, kicked, punched, or otherwise hurt by someone within the past year? If so, by whom?: No Do you feel safe in your current relationship?: No Current Relationship Is there a partner from a previous relationship who is making you feel unsafe now?: No Are you made to feel afraid or neglected: No Advance Directives: No Advance Directives Information Provided: No Do you have thoughts of harming others: None Do you have a plan to hurt others: No Plan Recently lost weight without trying: No service: Yes Meds Allergies Allergy/AdvReac Type Severity Reaction Status Date / Time amlodipine Allergy Unknown Unknown Verified 09/24/20 21:28 acetaminophen [From Percocet] Allergy Unknown Verified 09/25/20 01:13 aspirin Allergy Unknown Verified 09/25/20 01:13 celecoxib [From Celebrex] Allergy Unknown Verified 09/25/20 01:13 morphine Allergy Unknown Verified 09/25/20 01:13 NSAIDS (Non-Steroidal Allergy Unknown Verified 09/25/20 01:13 Anti-Inflamma oxycodone [From Percocet] Allergy Unknown Verified 09/25/20 01:13 tramadol [From Ultram] Allergy Unknown Verified 09/25/20 01:13 Home Medications Medication Instructions Recorded Confirmed Type apixaban [Eliquis] 5 mg PO BID 09/24/20 09/24/20 History ascorbic acid (vitamin C) 500 mg PO BID 09/24/20 09/24/20 History [Ascorbic Acid with Shruti Hips] atorvastatin 20 mg PO DAILY 09/24/20 09/24/20 History buprenorphine HCl 4 mg SUBLINGUAL Q6H PRN 09/24/20 09/24/20 History calcium carbonate-vitamin D3 1 tab PO DAILY 09/24/20 09/24/20 History clobetasol 1 appl TOPICAL BID PRN 09/24/20 09/24/20 History ferrous sulfate 325 mg PO DAILY 09/24/20 09/24/20 History folic acid 1 mg PO DAILY 09/24/20 09/24/20 History gabapentin 300 mg PO BEDTIME 09/24/20 09/24/20 History insulin glargine 22 unit SUBCUT BEDTIME 09/24/20 09/24/20 History insulin lispro 2 unit SUBCUT TID 09/24/20 09/24/20 History levothyroxine 112 mcg PO DAILY 09/24/20 09/24/20 History magnesium oxide 400 mg PO DAILY 09/24/20 09/24/20 History methocarbamol 750 mg PO BID PRN 09/24/20 09/24/20 History metoprolol tartrate 12.5 mg PO BID 09/24/20 09/24/20 History multivitamin 1 tab PO DAILY 09/24/20 09/24/20 History nystatin [Nystop] 1 appl TOPICAL BID 09/24/20 09/24/20 History omeprazole 40 mg PO BID 09/24/20 09/24/20 History polyethylene glycol 3350 [Miralax] 17 g PO DAILY 09/24/20 09/24/20 History sennosides [senna] 17.2 mg PO BEDTIME 09/24/20 09/24/20 History thiamine HCl (vitamin B1) 100 mg PO DAILY 09/24/20 09/24/20 History torsemide 20 mg PO BID 09/24/20 09/24/20 History triamcinolone acetonide 1 appl TOPICAL BID 09/24/20 09/24/20 History Physical Exam Vital Signs: Vital Signs: Last Vital Signs Temp 97.6 F 09/26/20 11:07 Pulse 92 09/26/20 11:35 Resp 22 H 09/26/20 11:07 BP 135/73 09/26/20 11:07 Pulse Ox 91 L 09/26/20 11:07 Body Mass Index 35.1 Const: General: cooperative HENMT: Head: Yes normal to inspection Mouth: Normal oral and palatal mucosa present Eyes: General: appearance normal, both eyes and all related structures Resp: Effort & Inspection: normal respiratory effort Cardio: Rate: regular rate Rhythm: regular rhythm GI: Palpation (GI): Soft to palpation and nontender : General: Yes no CVA tenderness Back/Spine/Pelvis: Back: no CVA tenderness Skin: General skin exam: no rashes or lesions noted Extrem: Other: chronic swelling and erythema bilaterally Assessment and Plan (1) Hyponatremia: Problem details: Hypotonic hyponatremia Status: Acute (2) Cellulitis: Qualifiers: Laterality: unspecified laterality Site of cellulitis: extremity Site of cellulitis of extremity: lower extremity Qualified Code(s): L03.119 - Cellulitis of unspecified part of limb Problem details: No active cellulitis Looks like chronic scaly abraded areas ?falls to feet and lower extremities Status: Acute May use po Doxycycline Follow Wound Clinic Results Labs CBC & Chem 7: 09/26/20 06:03 09/26/20 06:03 Labs: Short CBC 09/26/20 Range/Units 06:03 WBC 9.1 (4.8-10.8) X10*3/uL Hgb 10.8 L (14.0-18.0) g/dl Hct 35.5 L (42-52) % Plt Count 213 (160-400) X10*3/uL BMP 09/26/20 06:03 Sodium 123 L Potassium 4.7 Chloride 86 L Carbon Dioxide 28 BUN 25 H Creatinine 0.94 Calcium 7.8 L Microbiology Microbiology Results: Microbiology 09/24/20 22:25 Urine [place] Urine Culture - Final 09/24/20 19:52 Blood - Venous Blood Culture - Preliminary No growth after 24 hours. 09/24/20 19:48 Blood - Venous Blood Culture - Preliminary No growth after 24 hours.
[2020-09-26 16:44] LABS: Glucose, Whole Blood 242 mg/dL (60-115)
--- NOTE | 2020-09-26 19:50 | CONS_ITS ---
DATE OF SERVICE: 09/26/2020 CHIEF COMPLAINT: Altered mental status and question of sleep apnea. HISTORY OF PRESENT ILLNESS: Mr. Roque is a 64-year-old gentleman with a known history of alcohol dependency, lower extremity venous stasis and peripheral vascular disease in addition to history of nocturnal hypoxia, who apparently presents to the hospital with worsening lower extremity swelling, feet wounds and shortness of breath. He was noted to be hypoxic on presentation, also noted to have a UTI with an indwelling [place] catheter. The patient was admitted to the hospital, treated for cellulitis, also who was COVID tested, which was negative and placed on an alcohol withdrawal protocol because of his daily drinking. He was also treated for UTI. During the hospital course, the patient demonstrated increasing confusion. He did have venous gas demonstrating some degree of hypercarbia with acidosis. He has been maintaining on oxygen at nighttime for sleep. On further questioning, he states that he had a CPAP in the past, but he could not tolerate it. I did offer him CPAP here, but the patient is reluctant to use it at this time. This patient has been having some issues with confusions and hallucinations and also daytime drowsiness. REVIEW OF SYSTEMS: Ten systems reviewed. Complains of the daytime drowsiness. Complains of the respiratory complaints. Denies any cardiac issues. Has had the issues as stated above. Musculoskeletal issues as stated above. Positive for rashes. Ten systems reviewed. PAST MEDICAL HISTORY: Atrial fibrillation, alcohol abuse, cardiac defibrillator in place, cellulitis, CVA, diabetes, dyslipidemia, hypertension, hypothyroidism, indwelling catheter in addition to the lower extremity edema with the venous stasis and likely peripheral vascular disease. SOCIAL HISTORY: He is a daily drinker. His last drink was a couple days ago when he came to the hospital. FAMILY HISTORY: Positive for diabetes. ALLERGIES: MULTIPLE. PLEASE REFER TO THE MAR INCLUDING MORPHINE, NSAIDS, TRAMADOL, OXYCODONE, NORVASC, ASPIRIN. CURRENT MEDICATIONS: Please refer to the [facility] for the full list, which includes vancomycin, levothyroxine, penicillins, Zosyn, magnesium, omeprazole, thiamine, levalbuterol, Solu-Medrol 60 IV q.8, the CIWA protocol. PHYSICAL EXAMINATION: VITAL SIGNS: Stable, saturating 91% on room air. GENERAL: Pleasant gentleman, appears to be somnolent and lethargic. HEENT: Pupils equal and reactive to light. Oropharynx is clear. LUNGS: Diminished. CARDIAC: Regular rate, although he has a history of atrial fibrillation. EXTREMITIES: Significant lower extremity edema with excoriations and erythema. Chronic venous dermatitis noted, indwelling catheter also noted for his bladder. LABORATORY DATA: His white count 9.1, hemoglobin 10.8, and platelet count stable. Last venous gas was done on 09/26/2020, with a pH 7.31, pCO2 of 61, PO2 of 71. Tox screen positive for marijuana, barbiturates and also alcohol. His COVID testing was negative. IMAGING STUDIES: Did have a CT scan of the chest done on 09/24/2020, without contrast due to hypoxia demonstrating low lung volumes, atelectasis, significant hepatic steatosis and increased cardiac size along with aortic aneurysm. ASSESSMENT: Mr. Roque is a 64-year-old gentleman with alcohol dependence, substance abuse, morbid obesity, presenting with shortness of breath and other complaints. IMPRESSION: 1. Acute on chronic hypoxic hypercarbic respiratory failure. The patient has evidence of worsening hypoxia requiring more oxygen, although he is doing a little bit better today. He also has evidence of some degree of acidosis due to his hypercarbia. Appears to be likely related to hypoventilation syndrome in addition to the CIWA protocol and the use of benzodiazepines in his situation. 2. Obstructive sleep apnea. The patient did have CPAP in the past. He is reluctant to use it at this time. RECOMMENDATIONS: 1. Continue with the oxygen therapy to maintain a pulse ox between 88%-94%. In his case, over oxygenation could be dangerous and causing further suppression of his respiratory drive. 2. Start decreasing prednisone as this may also increase risk of hallucinations and altered mental status. 3. Would recommend him undergoing an outpatient sleep study. The patient could also use CPAP as an inpatient since he had it before, but he is reluctant to do so at this time. 4. Minimize the use of benzodiazepines with his risk of worsening respiratory suppression. 5. The patient's alcohol withdrawal become significant where he needs additional therapies and therefore the medications can tip him over into further respiratory failure. For that reason, would plan to repeat blood gas later today if the patient has evidence of worsening altered mental status and worsening acidosis from the hypercarbia, then would need to be placed on BiPAP. The BiPAP nuances would have to be in the ICU. Further recommendation based on forthcoming data. MD LEE Rosales/BRIA / [phone]
[2020-09-26 20:40] LABS: Glucose, Whole Blood 274 mg/dL (60-115)
[2020-09-26] MEDS: Insulin Glargine,Hum.rec.anlog 100 UNIT/ML 10 ML VIAL 22 UNIT SUBCUT (21:51)
[2020-09-26] MEDS: Urea 15 GM POWDER PO (22:35)
[2020-09-27] VITALS (9 sets, daily range): BP systolic 133–149; BP diastolic 70–89; PULSE 81–117; RESP 18–20; TEMP 36.1–36.8; O2SAT 92–95
[2020-09-27] MEDS: Levothyroxine Sodium 112 MCG TABLET PO (06:12)
[2020-09-27 07:17] LABS: Glucose, Whole Blood 293 mg/dL (60-115)
[2020-09-27 07:18] LABS: Hematocrit 39.8 % (42-52); Hemoglobin 11.9 g/dl (14.0-18.0); Mean Corpuscular HGB Conc 29.9 g/dl (31.0-36.0); Mean Corpuscular Hemoglobin 29.8 pg (27.0-33.0); Mean Corpuscular Volume 99.7 fL (80-98); Mean Platelet Volume 10.2 fL (9.4-12.4); Platelet Count 246 X10*3/uL (160-400); Red Blood Count 3.99 X10*6/uL (4.60-5.80); Red Cell Distribution Width 17.2 % (11.0-16.0); White Blood Count 9.3 X10*3/uL (4.8-10.8)
[2020-09-27] MEDS: levalbuterol HCL 1.25 MG/3 ML VIAL.NEB INHALE ×4 (07:30→19:43)
[2020-09-27 07:39] LABS: Blood Urea Nitrogen 25 mg/dL (9-16); Creatinine Clr Calc Pharmacy 110.8; Estimated Glomerular Filt Rate > 60; Glucose Random 301 mg/dL (60-115)
[2020-09-27 07:52] LABS: Anion Gap 14 (12-20); Calcium 8.6 mg/dL (8.4-10.2); Carbon Dioxide 30 mmol/L (22-29); Chloride 88 mmol/L (96-108); Potassium 5.1 mmol/l (3.3-5.1); Sodium 127 mmol/L (135-145)
[2020-09-27] MEDS: Urea 15 GM POWDER PO ×2 (08:21→21:36)
[2020-09-27] MEDS: Insulin Lispro 100 UNIT/ML 3 ML VIAL SUBCUT ×4 (08:22→20:49)
[2020-09-27] MEDS: methylPREDNISolone Sod Succ/PF 125 MG/2 ML VIAL 60 MG IVPUSH (08:22)
[2020-09-27] MEDS: Metoprolol Tartrate 25 MG TABLET 12.5 MG PO ×2 (08:23→20:51)
[2020-09-27] MEDS: Folic Acid 1 MG TABLET PO (08:23)
[2020-09-27] MEDS: Atorvastatin Calcium 20 MG TABLET PO (08:23)
[2020-09-27] MEDS: Apixaban 5 MG TABLET PO ×2 (08:23→20:50)
[2020-09-27] MEDS: 0.9 % Sodium Chloride Flush 3 ML SYRINGE IVFLUSH ×3 (08:23→21:35)
[2020-09-27] MEDS: Omeprazole 40 MG CAPSULE.DR PO ×2 (08:23→20:50)
[2020-09-27] MEDS: Magnesium Oxide 400 MG TABLET PO (08:24)
[2020-09-27] MEDS: guaiFENesin LA 600 MG TAB.ER.12H PO ×2 (08:24→20:50)
[2020-09-27] MEDS: Thiamine HCL 100 MG TABLET PO (08:24)
--- NOTE | 2020-09-27 09:58 | HO.PM.IMPN ---
Subjective Subjective Date of Service: 09/27/20 Interval History: seen and examined this AM more alert today and reporting anxiety / alcohol withdrawal. requesting meds for this reports breathing better on RA ROS General - no fevers or chills Cardiovascular - no chest pain Respiratory - sob improving Abdominal- no abdominal pain, nausea, vomiting, diarrhea Ext - b/l leg pain Physical Exam Vital Signs: Vital Signs: Last Vital Signs Temp 97.6 F 09/27/20 07:49 Pulse 102 H 09/27/20 08:23 Resp 18 09/27/20 07:49 BP 146/70 H 09/27/20 08:23 Pulse Ox 92 09/27/20 07:49 Body Mass Index 35.1 Const: Other: General - no acute distress, appears comfortable Cardiovascular - regular rate and rhythm, S1-S2 Lungs - no distress Abdomen - soft, nontender, no rebound or guarding Extremities - no edema bilaterally Neuro - awake and alert, no focal deficits Skin - bilateral chronic skin changes Objective Data Current Medications Generic Name Dose Route Start Last Admin Trade Name Gabi PRN Reason Stop Dose Admin Apixaban 5 mg 09/25/20 09:00 09/27/20 08:23 Apixaban 5 Mg Tablet PO 5 mg BID ADY Administration Atorvastatin Calcium 20 mg 09/25/20 09:00 09/27/20 08:23 Atorvastatin Calcium 20 Mg Tablet PO 20 mg DAILY ADY Administration Doxycycline Hyclate 100 mg 09/26/20 21:00 09/27/20 08:24 Doxycycline Hyclate 100 Mg Tablet PO 100 mg BID ADY Administration Folic Acid 1 mg 09/25/20 09:00 09/27/20 08:23 Folic Acid 1 Mg Tablet PO 1 mg DAILY ADY Administration Guaifenesin 600 mg 09/25/20 09:00 09/27/20 08:24 Guaifenesin La 600 Mg Tab.Er.12h PO 600 mg BID ADY Administration Insulin Glargine 22 unit 09/25/20 21:00 09/26/20 21:51 Insulin Glargine,Hum.Rec.Anlog 100 Unit/Ml 10 Ml Vial SUBCUT 22 unit BEDTIME ADY Administration Insulin Human Lispro 0 unit 09/25/20 07:30 09/27/20 08:22 Insulin Lispro 100 Unit/Ml 3 Ml Vial SUBCUT 6 unit QIDACHS ADY Administration Protocol Levalbuterol HCl 1.25 mg 09/25/20 12:00 09/27/20 07:30 Levalbuterol Hcl 1.25 Mg/3 Ml Vial.Neb INHALE 1.25 mg RQ4H WHILE AWAKE ADY Administration Levothyroxine Sodium 112 mcg 09/25/20 06:00 09/27/20 06:12 Levothyroxine Sodium 112 Mcg Tablet PO 112 mcg DAILY@0600 ADY Administration Magnesium Oxide 400 mg 09/25/20 09:00 09/27/20 08:24 Magnesium Oxide 400 Mg Tablet PO 400 mg DAILY ADY Administration Medication 1 each 09/26/20 09:00 No Benzodiazepines MISCELLANE DAILY [facility] Methylprednisolone Sodium Succinate 60 mg 09/25/20 16:00 09/27/20 08:22 Methylprednisolone Sod Succ/Pf 125 Mg/2 Ml Vial IVPUSH 60 mg Q8H ADY Administration Metoprolol Tartrate 12.5 mg 09/25/20 09:00 09/27/20 08:23 Metoprolol Tartrate 25 Mg Tablet PO 12.5 mg BID [facility] Administration Protocol Omeprazole 40 mg 09/25/20 09:00 09/27/20 08:23 Omeprazole 40 Mg Capsule. PO 40 mg BID [facility] Administration Pharmacy Consult 1 each 09/24/20 20:00 Consult Rx Perform Med Rec MISCELLANE ONCE PRN Consult order Pharmacy Consult 1 each 09/24/20 23:37 Consult Rx Vancomycin Dosing MISCELLANE DAILY PRN Consult order Pharmacy Consult 1 each 09/25/20 06:46 Consult Rx Vancomycin Dosing MISCELLANE DAILY PRN Consult order Phenobarbital 60 mg 09/27/20 10:00 Phenobarbital 30 Mg Tablet PO 09/28/20 21:01 BID [facility] Phenobarbital 30 mg 09/29/20 09:00 Phenobarbital 30 Mg Tablet PO 09/30/20 21:01 BID [facility] Phenobarbital 30 mg 10/01/20 09:00 Phenobarbital 30 Mg Tablet PO 10/02/20 09:01 DAILY [facility] Sodium Chloride 3 ml 09/25/20 08:00 09/27/20 08:23 0.9 % Sodium Chloride Flush 3 Ml Syringe IVFLUSH 3 ml QSHIFT [facility] Administration Thiamine HCl 100 mg 09/25/20 09:00 09/27/20 08:24 Thiamine Hcl 100 Mg Tablet PO 100 mg DAILY [facility] Administration Urea 15 gm 09/26/20 21:00 09/27/20 08:21 Urea 15 Gm Powder PO 15 gm BID ADY Administration Labs CBC & Chem 7: 09/27/20 06:26 09/27/20 06:26 Microbiology Microbiology Results: Microbiology 09/24/20 19:52 Blood - Venous Blood Culture - Preliminary No growth after 48 hours. 09/24/20 19:48 Blood - Venous Blood Culture - Preliminary No growth after 48 hours. 09/24/20 22:25 Urine [place] Urine Culture - Final Assessment and Plan (1) Hyponatremia: Status: Acute (2) Cellulitis: Status: Acute Assessment and Plan: This is a 64 yo M with multiple medical problems who is admitted for: 1. Chronic venous stasis with superimposed cellulitis ID input appreciated Vascular eval tomorrow PO doxycycline cultures negative to date 2. Acute Respiratory failure with hypoxia / hypercarbia resolved this AM, tolerating RA O2 goal 88-92 Pulmonary input appreciated taper steroids multifactorial including probable undiagnosed copd + MARIELA + obesity hypoventilation syndrome echo done - normal LV function 3. HypoNa improved with Urea - 15mg bid Nephrology input appreciated continue with fluid restriction 4. A. Fib rates improved continue metoprolol continue eliquis 5. Alcohol abuse and dependence having mild withdrawal will restart PO phenobarb and monitor resp. status carefully 6. DM basal+bolus diabetic diet 7. Chronic pain slowly reintroduce his meds Full Code DVT pptx, Eliquis he reports daughter is first HCP and ex- is second HCP. Gives permission to talk to either.
[2020-09-27 11:12] LABS: Glucose, Whole Blood 249 mg/dL (60-115)
[2020-09-27] MEDS: PHENobarbitaL 30 MG TABLET 60 MG PO ×2 (11:32→20:50)
[2020-09-27] MEDS: polyethylene glycoL 3350 17 GM POWD.PACK PO (11:33)
--- NOTE | 2020-09-27 15:31 | PM.PNNEP ---
Subjective Subjective Date of Service: 10/09/20 Interval history: Events noted Physical Exam Vital Signs: Vital Signs: Last Vital Signs Temp 97 F 09/27/20 15:26 Pulse 101 H 09/27/20 15:26 Resp 18 09/27/20 15:26 BP 133/83 09/27/20 15:26 Pulse Ox 94 09/27/20 15:26 Body Mass Index 35.1 Const: General: no acute distress Neck: Neck: Yes no JVD Resp: Auscultation: rhonchi Cardio: Heart sounds: no rubs GI: Palpation (GI): Soft to palpation Auscultation: normal bowel sounds Neuro: Motor exam (neuro): no asterixis Objective Data Labs CBC & Chem 7: 09/29/20 05:24 09/29/20 05:24 Labs: Laboratory Results - last 24 hr 09/26/20 09/26/20 09/27/20 16:40 20:25 06:26 WBC 9.3 RBC 3.99 L Hgb 11.9 L Hct 39.8 L MCV 99.7 H MCH 29.8 MCHC 29.9 L RDW 17.2 H Plt Count 246 MPV 10.2 Absolute Nucleated RBC 0.000 Nucleated RBC % (auto) 0.0 Sodium Potassium Chloride Carbon Dioxide Anion Gap BUN Creatinine Estim Creat Clear Calc Estimated GFR POC Glucose 242 H 274 H Random Glucose Calcium 09/27/20 09/27/20 09/27/20 06:26 07:12 11:05 WBC RBC Hgb Hct MCV MCH MCHC RDW Plt Count MPV Absolute Nucleated RBC Nucleated RBC % (auto) Sodium 127 L Potassium 5.1 Chloride 88 L Carbon Dioxide 30 H Anion Gap 14 BUN 25 H Creatinine 1.02 Estim Creat Clear Calc 110.8 Estimated GFR > 60 POC Glucose 293 H 249 H Random Glucose 301 H Calcium 8.6 D Microbiology Microbiology Results: Microbiology 09/24/20 19:52 Blood - Venous Blood Culture - Preliminary No growth after 48 hours. 09/24/20 19:48 Blood - Venous Blood Culture - Preliminary No growth after 48 hours. 09/24/20 22:25 Urine [place] Urine Culture - Final Assessment & Plan Assessment and plan (1) Hyponatremia: Status: Acute Time Spent With Patient Time: Total time spent is greater than 50% in coordination of care (as documented) at patient's floor/unit and/or counseling patient:
[2020-09-27 16:21] LABS: Glucose, Whole Blood 303 mg/dL (60-115)
[2020-09-27 20:32] LABS: Glucose, Whole Blood 248 mg/dL (60-115)
[2020-09-27] MEDS: Insulin Glargine,Hum.rec.anlog 100 UNIT/ML 10 ML VIAL 22 UNIT SUBCUT (20:49)
[2020-09-28] VITALS (13 sets, daily range): BP systolic 125–151; BP diastolic 70–92; PULSE 90–121; RESP 20; TEMP 35.6–36.7; O2SAT 91–98; BMI 35.1
--- NOTE | 2020-09-28 | CT_ITS ---
EXAMINATION: CT ANGIOGRAPHY LEGS WITH RUNOFF CLINICAL INFORMATION: Nonhealing ulcer. Old endograft. COMPARISON: None TECHNIQUE: Following intravenous administration of 100 mL of Omnipaque 350, 5 mm thin axial images of abdomen, pelvis and both lower extremities were obtained. 3 mm thin sagittal and coronal and 0.6 mm thin axial reconstructions were performed subsequently. This CT examination was performed using dose optimization techniques as appropriate, variously including the following: *Automated exposure control *Adjustment of mA and/or kV according to patient size (this includes techniques or standardized protocols for targeted exams where dose is matched to indication/reason for exam; i.e. extremities or head) *Use of iterative reconstruction technique DLP: 1231 mGy-cm FINDINGS: NON VASCULAR: There is right basilar compressive atelectasis and/or infiltrate. Minimal left posterior pleural thickening is seen. The heart size is normal. The liver is mildly enlarged and diffusely attenuated without any focal lesions or intrahepatic ductal dilatation. The gallbladder has been surgically removed. The visualized spleen, pancreas and right adrenal gland appear unremarkable. There is a left adrenal well-defined enhancing lesion 2.6 x 2.5 x 3.3 cm and 66 Hounsfield units. The right adrenal gland is normal. The right kidney is normal in size, shape. The left kidney is slightly smaller. There are bilateral cortical scars in the midpole right kidney and the mid and lower pole left kidney. There are nonobstructive bilateral radiopaque renal calculi. The largest in left kidney upper pole measuring 1.5 cm and midpole right kidney measuring 1.1 cm. There is no hydronephrosis. There are bilateral nonenhancing renal cysts. Bilateral calculi and bilateral cysts are better defined on the previous CT abdomen and pelvis exam 09/26/2020. There are no adrenal lymph nodes or mass seen. There is scattered stool and gas seen throughout the colon without any distention. The small bowel loops are normal caliber. The appendix is not seen with certainty. The stomach is nondistended. The anterior abdominal wall appears unremarkable. Imaging through the pelvis reveals a Franklin catheter within neobladder. Likely previous prostatectomy changes. No free fluid or free air. No abnormal pelvic or inguinal lymph nodes. Bone windows reveal degenerative disc changes virtually at every disc level with ventral spondylosis. No acute fracture or lytic process seen. A total right hip prosthesis is noted. VASCULAR ABDOMEN AND PELVIS: There is mild ectasia of the upper abdominal aorta measuring 3.9 x 5.1 cm at the level of aortic hiatus axial image 39/6. The mid and the distal abdominal aorta caliber is normal. There is an aortic graph stent seen from the distal abdominal aorta into the bilateral common iliac vessels. There is mild atherosclerotic calcified plaque in the region of celiac and SMA without stenosis or narrowing. There are solitary renal arteries bilaterally with calcified atherosclerotic arch at the origin of both the arteries. There is mild stenosis at the origin of both renal arteries. There is calcification seen throughout both renal arteries into the hilum. There is an aortoiliac stent graft extending from the distal abdominal aorta into bilateral common iliac arteries. There is aneurysmal dilatation of the left common iliac artery measuring 3.5 cm in width on axial image 70/6 and approximately 5.4 cm in length. The right common iliac artery is of normal caliber. There is extensive atherosclerotic calcification of both common and external iliac arteries. There is normal bifurcation of common iliac artery into internal and external iliac arteries with the origins widely patent. There are coils present in the left internal iliac artery likely from aneurysm coiling. LOWER EXTREMITY VASCULAR RUNOFF: Left extremity: The left external iliac and common femoral artery is heavily calcified but patent. The common femoral artery bifurcates into a patent superficial femoral artery and a small left profunda artery. The superficial femoral artery is heavily calcified and appears patent. There are patent geniculate branches in the knee and popliteal artery and the knee. The popliteal artery is heavily calcified and bifurcates into anterior tibial and a common origin of posterior tibial and peroneal arteries. The anterior tibial artery continues to the ankle and is patent. The peroneal and the posterior tibial arteries are widely patent as well into the ankle. The anterior tibial artery continues as dorsalis pedis but faintly visualized in the foot. The posterior tibial artery continues to the ankle and fades away in the foot. Right extremity: The right external iliac artery bifurcates into superficial femoral artery and profunda femoral artery which are widely patent. The superficial femoral artery is heavily calcified in the entire extent. It continues as patent popliteal. The peroneal artery extends into the distal leg and fades out. The posterior tibial artery continues into the ankle and beyond. It is heavily calcified. The anterior tibial artery is heavily calcified in the proximal and mid segment and continues to the ankle and fades out below the ankle. NONVASCULAR EXTREMITY: There is a right hip prostheses in place. There is normal symmetry of muscular compartments in both thighs and calf region. No focal mass, cellulitis or mass seen. There are degenerative disc changes in the knee joint and ankle joint. CT/CT angio abd aorta runoff IMPRESSION: The abdominal aorta, common iliac and external iliac arteries, and the arteries of both lower extremities are heavily calcified. 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 Both common iliac arteries, common femoral, superficial femoral, popliteal arteries, trifurcation and a two-vessel runoff into the ankle is noted bilaterally. There is faint visualization of DP and posterior tibial arteries beyond the ankle. The contrast is less than optimal throughout the vascular system. There is left internal iliac artery coils from embolization. Right lower lobe dependent atelectasis. Minimal left posterior pleural thickening/effusion. There are coronary artery calcifications. Hepatic steatosis with mild hepatomegaly. The gallbladder is surgically absent. Bilateral chronic renal scarring, bilateral renal cysts and bilateral renal calculi without caliectasis or hydronephrosis. The left kidney is smaller than the right. Franklin catheter extends into the neobladder.
[2020-09-28] MEDS: Levothyroxine Sodium 112 MCG TABLET PO (05:27)
[2020-09-28 06:50] LABS: Hematocrit 39.4 % (42-52); Hemoglobin 11.8 g/dl (14.0-18.0); Mean Corpuscular HGB Conc 29.9 g/dl (31.0-36.0); Mean Corpuscular Hemoglobin 29.4 pg (27.0-33.0); Mean Corpuscular Volume 98.3 fL (80-98); Mean Platelet Volume 10.6 fL (9.4-12.4); Platelet Count 222 X10*3/uL (160-400); Red Blood Count 4.01 X10*6/uL (4.60-5.80); Red Cell Distribution Width 17.1 % (11.0-16.0)
[2020-09-28 07:11] LABS: Anion Gap 16 (12-20); Blood Urea Nitrogen 41 mg/dL (9-16); Calcium 8.3 mg/dL (8.4-10.2); Carbon Dioxide 27 mmol/L (22-29); Chloride 91 mmol/L (96-108); Creatinine Clr Calc Pharmacy 125.6; Estimated Glomerular Filt Rate > 60; Glucose Random 262 mg/dL (60-115); Potassium 5.4 mmol/l (3.3-5.1); Sodium 129 mmol/L (135-145)
[2020-09-28 07:44] LABS: Glucose, Whole Blood 204 mg/dL (60-115)
[2020-09-28] MEDS: levalbuterol HCL 1.25 MG/3 ML VIAL.NEB INHALE ×4 (07:47→19:35)
[2020-09-28] MEDS: Insulin Lispro 100 UNIT/ML 3 ML VIAL SUBCUT ×4 (08:31→21:15)
[2020-09-28] MEDS: Urea 15 GM POWDER PO ×2 (08:32→21:19)
[2020-09-28] MEDS: polyethylene glycoL 3350 17 GM POWD.PACK PO (08:32)
[2020-09-28] MEDS: Thiamine HCL 100 MG TABLET PO (08:32)
[2020-09-28] MEDS: PHENobarbitaL 30 MG TABLET 60 MG PO ×2 (08:32→21:16)
[2020-09-28] MEDS: Sodium Polystyrene Sulfon/Sorb 15 GM/60 ML ORAL.SUSP PO (08:32)
[2020-09-28] MEDS: Apixaban 5 MG TABLET PO ×2 (08:32→21:17)
[2020-09-28] MEDS: Omeprazole 40 MG CAPSULE.DR PO ×2 (08:32→21:17)
[2020-09-28] MEDS: Atorvastatin Calcium 20 MG TABLET PO (08:32)
[2020-09-28] MEDS: 0.9 % Sodium Chloride Flush 3 ML SYRINGE IVFLUSH ×2 (08:33→15:34)
[2020-09-28] MEDS: Folic Acid 1 MG TABLET PO (08:33)
[2020-09-28] MEDS: Magnesium Oxide 400 MG TABLET PO (08:33)
[2020-09-28] MEDS: guaiFENesin LA 600 MG TAB.ER.12H PO ×2 (08:33→21:16)
[2020-09-28] MEDS: Metoprolol Tartrate 25 MG TABLET 12.5 MG PO (08:33)
--- NOTE | 2020-09-28 08:42 | MHC.CM.PN ---
pt has extensive svcs at home. dc plan if home is to return with those svcs coordinated via [facility] - coordinator. he may go to detox depending on pt's willingness and the efforts of [facility] / C care team if they are involved. cm to cont. to follow.
--- NOTE | 2020-09-28 10:39 | P.CDIC_ITS ---
CDI Concurrent Query Service Date: 09/28/20 Documentation Clarification: Please clarify if you are treating a proba ble/suspected/likely or confirmed: Urinary tract infection Urinary tract infection due to chronic indwelling barrios catheter Please specify if known No UTI -- chronic colonization Provider Response: Other Other Diagnosis: No UTI -- Chronic Colonization PLEASE DO NOT DELETE/MODIFY EXISTING CONTENT Additional information is needed in order to code to the highest accuracy and appropriate Severity of Illness (SOI). Please clarify the information noted below in your progress notes and discharge summary. Risk Factors/Clinical Indicators/Treatments Ed: UTI H&P: Acute UTI, chronic indwelling barrios catheter. b/c pending Pulmonary note 1/ - hypoxia on presentation also noted a UTI w an indwelling barrios catheter. cloudy, nitrite positive, leukocyte 3+, bacteria 2+. CDS: Hannah Zamora CCS, CDIS Contact Number: [phone] Please Review the information above and exercise your independent professional judgment in responding to the query. If you concur, pleas document in the PROGRESS NOTES and DISCHARGE SUMMARY. If you do not agree with the query, please document in the query above. THIS QUERY IS PART OF THE PERMANENT MEDICAL RECORD
[2020-09-28 11:31] LABS: Glucose, Whole Blood 197 mg/dL (60-115)
--- NOTE | 2020-09-28 12:03 | P.PNIM_ITS ---
Subjective Subjective Date of Service: 09/28/20 Interval History: seen and examined this AM slowly improving breathing improved unwilling to wean cpap at night despite explaining to him the need ROS General - no fevers or chills Cardiovascular - no chest pain Respiratory - sob improving Abdominal- no abdominal pain, nausea, vomiting, diarrhea Ext - b/l leg pain Physical Exam Vital Signs: Vital Signs: Last Vital Signs Temp 96.0 F L 09/28/20 08:00 Pulse 102 H 09/28/20 11:43 Resp 20 09/28/20 08:00 BP 131/70 09/28/20 08:33 Pulse Ox 96 09/28/20 08:00 Body Mass Index 35.1 Const: Other: General - no acute distress, appears comfortable Cardiovascular - regular rate and rhythm, S1-S2 Lungs - no distress Abdomen - soft, nontender, no rebound or guarding Extremities - no edema bilaterally Neuro - awake and alert, no focal deficits Skin - bilateral chronic skin changes Objective Data Current Medications Generic Name Dose Route Start Last Admin Trade Name Freq PRN Reason Stop Dose Admin Albuterol/Ipratropium 3 ml 09/28/20 02:42 Albuterol/Iprat 2.5/0.5mg 3 Ml Ampul.Neb INHALE RQ4H PRN Shortness of Breath/Wheezing Apixaban 5 mg 09/25/20 09:00 09/28/20 08:32 Apixaban 5 Mg Tablet PO 5 mg BID ADY Administration Atorvastatin Calcium 20 mg 09/25/20 09:00 09/28/20 08:32 Atorvastatin Calcium 20 Mg Tablet PO 20 mg DAILY ADY Administration Buprenorphine HCl 4 mg 09/28/20 08:00 Buprenorphine Hcl 2 Mg Tab.Subl SUBLINGUAL Q6H PRN Pain Doxycycline Hyclate 100 mg 09/26/20 21:00 09/28/20 08:32 Doxycycline Hyclate 100 Mg Tablet PO 100 mg BID ADY Administration Folic Acid 1 mg 09/25/20 09:00 09/28/20 08:33 Folic Acid 1 Mg Tablet PO 1 mg DAILY ADY Administration Guaifenesin 600 mg 09/25/20 09:00 09/28/20 08:33 Guaifenesin La 600 Mg Tab.Er.12h PO 600 mg BID ADY Administration Insulin Glargine 22 unit 09/25/20 21:00 09/27/20 20:49 Insulin Glargine,Hum.Rec.Anlog 100 Unit/Ml 10 Ml Vial SUBCUT 22 unit BEDTIME [facility] Administration Insulin Human Lispro 0 unit 09/25/20 07:30 09/28/20 11:56 Insulin Lispro 100 Unit/Ml 3 Ml Vial SUBCUT 2 unit QIDACHS [facility] Administration Protocol Levalbuterol HCl 1.25 mg 09/25/20 12:00 09/28/20 11:39 Levalbuterol Hcl 1.25 Mg/3 Ml Vial.Neb INHALE 1.25 mg RQ4H WHILE AWAKE [facility] Administration Levothyroxine Sodium 112 mcg 09/25/20 06:00 09/28/20 05:27 Levothyroxine Sodium 112 Mcg Tablet PO 112 mcg DAILY@0600 [facility] Administration Magnesium Oxide 400 mg 09/25/20 09:00 09/28/20 08:33 Magnesium Oxide 400 Mg Tablet PO 400 mg DAILY [facility] Administration Medication 1 each 09/26/20 09:00 No Benzodiazepines MISCELLANE DAILY [facility] Metoprolol Tartrate 12.5 mg 09/25/20 09:00 09/28/20 08:33 Metoprolol Tartrate 25 Mg Tablet PO 12.5 mg BID [facility] Administration Protocol Omeprazole 40 mg 09/25/20 09:00 09/28/20 08:32 Omeprazole 40 Mg Capsule. PO 40 mg BID [facility] Administration Pharmacy Consult 1 each 09/24/20 20:00 Consult Rx Perform Med Rec MISCELLANE ONCE PRN Consult order Pharmacy Consult 1 each 09/24/20 23:37 Consult Rx Vancomycin Dosing MISCELLANE DAILY PRN Consult order Pharmacy Consult 1 each 09/25/20 06:46 Consult Rx Vancomycin Dosing MISCELLANE DAILY PRN Consult order Phenobarbital 60 mg 09/27/20 10:00 09/28/20 08:32 Phenobarbital 30 Mg Tablet PO 09/28/20 21:01 60 mg BID [facility] Administration Phenobarbital 30 mg 09/29/20 09:00 Phenobarbital 30 Mg Tablet PO 09/30/20 21:01 BID [facility] Phenobarbital 30 mg 10/01/20 09:00 Phenobarbital 30 Mg Tablet PO 10/02/20 09:01 DAILY [facility] Polyethylene Glycol 17 gm 09/27/20 10:10 09/28/20 08:32 Polyethylene Glycol 3350 17 Gm Powd.Pack PO 17 gm DAILY [facility] Administration Sodium Chloride 3 ml 09/25/20 08:00 09/28/20 08:33 0.9 % Sodium Chloride Flush 3 Ml Syringe IVFLUSH 3 ml QSHIFT ADY Administration Thiamine HCl 100 mg 09/25/20 09:00 09/28/20 08:32 Thiamine Hcl 100 Mg Tablet PO 100 mg DAILY ADY Administration Urea 15 gm 09/26/20 21:00 09/28/20 08:32 Urea 15 Gm Powder PO 15 gm BID ADY Administration Labs CBC & Chem 7: 09/28/20 05:24 09/28/20 05:24 Microbiology Microbiology Results: Microbiology 09/24/20 19:52 Blood - Venous Blood Culture - Preliminary No growth after 48 hours. 09/24/20 19:48 Blood - Venous Blood Culture - Preliminary No growth after 48 hours. 09/24/20 22:25 Urine [place] Urine Culture - Final Assessment and Plan (1) Hyponatremia: Status: Acute (2) Cellulitis: Status: Acute Assessment and Plan: This is a 64 yo M with multiple medical problems who is admitted for: 1. Chronic venous stasis with superimposed cellulitis ID input appreciated Vascular eval appreciated -- plan for CTA with run off today although given his respiratory / alcohol withdrawal status, conservative mgmt likely. PO doxycycline cultures negative to date 2. Acute Respiratory failure with hypoxia / hypercarbia tolerating RA x 24 hours now O2 goal 88-92 Pulmonary input appreciated taper steroids multifactorial including probable undiagnosed copd + MARIELA + obesity hypoventilation syndrome echo done - normal LV function Not interested in using CPAP. 3. HypoNa slowly improving improved with Urea - 15mg bid Nephrology input appreciated continue with fluid restriction 4. A. Fib rates improved continue metoprolol continue eliquis 5. Alcohol abuse and dependence po phenobarb monitor lytes cessation as been strongly encouraged 6. DM basal+bolus diabetic diet 7. Chronic pain slowly reintroduce his meds Full Code DVT pptx, Eliquis he reports daughter is first HCP and ex- is second HCP. Gives permission to talk to either.
--- NOTE | 2020-09-28 12:04 | P.EN_ITS ---
Event Note Date of Service: 09/28/20 Event Note: Full consult dictated for nonhealing lower extremity ulcers.. Pat ient doing significantly better since admission. Ordered CTA with runoff. Will follow up after testing.
[2020-09-28] MEDS: predniSONE 20 MG TABLET 40 MG PO (12:47)
--- NOTE | 2020-09-28 13:54 | CONS_ITS ---
DATE OF SERVICE: 09/28/2020 REASON FOR CONSULTATION: Nonhealing lower extremity ulcers. HISTORY OF PRESENT ILLNESS: A 64-year-old man with multiple medical problems and history of chronic alcohol abuse, [facility]. His feet had been significantly getting worse. He was subsequently admitted and worked up and at that time was found to have cellulitis of the lower extremity, fluid overload, and an acute UTI. He was subsequently admitted and treated and he now presents to us for vascular evaluation. PAST MEDICAL HISTORY: Significant for atrial fibrillation, chronic alcohol abuse, cellulitis, CVA, diabetes, hypertension, hyperlipidemia, hypothyroidism and indwelling catheter. PAST SURGICAL HISTORY: Includes an endovascular aneurysm repair, prior lower extremity endovascular interventions. MEDICATIONS: Medication list was reviewed per nursing MAR. ALLERGIES: INCLUDE AMLODIPINE, ACETAMINOPHEN, ASPIRIN, CELEBREX, MORPHINE, NSAIDS, OXYCODONE, AND TRAMADOL. SOCIAL HISTORY: Active drinker, drinks at least several drinks a day that he admits to, I do believe it is a significant amount more than that. Nonsmoker. No recreational drug abuse. FAMILY HISTORY: No history of advanced coronary artery disease or peripheral vascular disease. REVIEW OF SYSTEMS: 13-point review was performed at the current time. Denies any headache, dizziness, nausea, vomiting, diarrhea, or shortness of breath. Rest of 13-point review was essentially negative. PHYSICAL EXAMINATION: GENERAL: Afebrile. VITAL SIGNS: Stable. HEAD AND NECK: Demonstrates no bruits. CHEST: Moving air bilaterally. CARDIAC: Positive S1-S2. ABDOMEN: Soft. EXTREMITIES: Upper extremities have good radial and ulnar pulses. Lower extremities are warm with good capillary refill. Right foot edema and right great toe nonhealing ulcer on the front of the foot. IMPRESSION: Nonhealing lower extremity ulcers. At the current time, his legs have significantly improved since admission. His hyponatremia and respiratory status have improved along with treatment of the urinary tract infection. His overall edema has improved as well. At the current time, we would order CTA with runoff to better elucidate his runoff status. Due to his general condition, I would try to manage him as conservatively as possible. Notes from Infectious Disease and Pulmonary appreciated. We will monitor his status with you. Thank you for allowing us to assist in his care. MD BRUCE Garcia/BRIA / [phone]
[2020-09-28] MEDS: Buprenorphine HCL 2 MG TAB.SUBL 4 MG SUBLINGUAL (15:33)
[2020-09-28] MEDS: iohexoL 350 MG/ML 100 ML INFUS..BTL IV (15:35)
--- NOTE | 2020-09-28 16:40 | PM.PNNEP ---
Subjective Subjective Date of Service: 09/28/20 Interval history: seen and examined this AM slowly improving breathing improved ROS General - no fevers or chills Cardiovascular - no chest pain Respiratory - sob improving Abdominal- no abdominal pain, nausea, vomiting, diarrhea Ext - b/l leg pain Physical Exam Vital Signs: Vital Signs: Last Vital Signs Temp 97.4 F 09/28/20 15:55 Pulse 105 H 09/28/20 15:55 Resp 20 09/28/20 15:55 BP 127/92 H 09/28/20 15:55 Pulse Ox 95 09/28/20 16:19 Body Mass Index 35.1 Const: General: no acute distress Orientation/consciousness: patient oriented x3 Neck: Neck: Yes supple Resp: Auscultation: diminished lung sounds Cardio: Rate: regular rate GI: Palpation (GI): Soft to palpation Neuro: General: patient oriented x3 Objective Data Labs CBC & Chem 7: 09/28/20 05:24 09/28/20 05:24 Labs: Laboratory Results - last 24 hr 09/27/20 09/28/20 09/28/20 20:21 05:24 05:24 WBC 7.0 RBC 4.01 L Hgb 11.8 L Hct 39.4 L MCV 98.3 H MCH 29.4 MCHC 29.9 L RDW 17.1 H Plt Count 222 MPV 10.6 Absolute Nucleated RBC 0.000 Nucleated RBC % (auto) 0.0 Sodium 129 L Potassium 5.4 H Chloride 91 L Carbon Dioxide 27 Anion Gap 16 BUN 41 H D Creatinine 0.90 Estim Creat Clear Calc 125.6 Estimated GFR > 60 POC Glucose 248 H Random Glucose 262 H Calcium 8.3 L 09/28/20 09/28/20 07:39 11:13 WBC RBC Hgb Hct MCV MCH MCHC RDW Plt Count MPV Absolute Nucleated RBC Nucleated RBC % (auto) Sodium Potassium Chloride Carbon Dioxide Anion Gap BUN Creatinine Estim Creat Clear Calc Estimated GFR POC Glucose 204 H 197 H Random Glucose Calcium Microbiology Microbiology Results: Microbiology 09/24/20 19:52 Blood - Venous Blood Culture - Preliminary No growth after 48 hours. 09/24/20 19:48 Blood - Venous Blood Culture - Preliminary No growth after 48 hours. 09/24/20 22:25 Urine [place] Urine Culture - Final Assessment & Plan Assessment and plan (1) Hyponatremia: Problem details: Serum sodium better/Stable Needs serum cortisol if not checked earlier Continue PO Urea for now Concur with rest of current supportive management Status: Acute Time Spent With Patient Time: Total time spent is greater than 50% in coordination of care (as documented) at patient's floor/unit and/or counseling patient:
[2020-09-28 16:51] LABS: Glucose, Whole Blood 192 mg/dL (60-115)
--- NOTE | 2020-09-28 19:38 | PC.NURSE ---
Pt HR increasing to 120s-130s. Laying in bed. Denies chest pain. Dr. Ocampo made aware. Increased metoprolol. Will continue to monitor.
[2020-09-28 21:05] LABS: Glucose, Whole Blood 350 mg/dL (60-115)
[2020-09-28] MEDS: Insulin Glargine,Hum.rec.anlog 100 UNIT/ML 10 ML VIAL 22 UNIT SUBCUT (21:15)
[2020-09-28] MEDS: Metoprolol Tartrate 25 MG TABLET PO (21:17)
[2020-09-29] VITALS (7 sets, daily range): BP systolic 123–147; BP diastolic 69–91; PULSE 87–98; RESP 18–20; TEMP 36.1–36.6; O2SAT 91–98
[2020-09-29] MEDS: traZODone HCL 25 MG HALFTAB PO (00:06)
[2020-09-29] MEDS: Lidocaine 4 % Patch ADH..PATCH 1 PATCH TRANSDERMA (00:06)
[2020-09-29] MEDS: 0.9 % Sodium Chloride Flush 3 ML SYRINGE IVFLUSH ×2 (00:07→10:02)
[2020-09-29] MEDS: Levothyroxine Sodium 112 MCG TABLET PO (05:54)
[2020-09-29] MEDS: Buprenorphine HCL 2 MG TAB.SUBL 4 MG SUBLINGUAL (06:55)
[2020-09-29 06:56] LABS: Hematocrit 40.1 % (42-52); Mean Corpuscular HGB Conc 29.9 g/dl (31.0-36.0); Mean Corpuscular Hemoglobin 29.8 pg (27.0-33.0); Mean Corpuscular Volume 99.5 fL (80-98); Mean Platelet Volume 10.1 fL (9.4-12.4); Platelet Count 226 X10*3/uL (160-400); Red Blood Count 4.03 X10*6/uL (4.60-5.80); White Blood Count 9.2 X10*3/uL (4.8-10.8)
[2020-09-29] MEDS: levalbuterol HCL 1.25 MG/3 ML VIAL.NEB INHALE ×2 (07:24→11:06)
[2020-09-29 07:30] LABS: Anion Gap 13 (12-20); Blood Urea Nitrogen 48 mg/dL (9-16); Calcium 8.6 mg/dL (8.4-10.2); Carbon Dioxide 32 mmol/L (22-29); Chloride 90 mmol/L (96-108); Creatinine Clr Calc Pharmacy 122.9; Estimated Glomerular Filt Rate > 60; Glucose Random 98 mg/dL (60-115); Sodium 130 mmol/L (135-145)
[2020-09-29 07:45] LABS: Glucose, Whole Blood 94 mg/dL (60-115)
--- NOTE | 2020-09-29 09:46 | PM.PNNEP ---
Subjective Subjective Date of Service: 09/29/20 Interval history: seen and examined this AM. Events noted. All recent data reviewed Physical Exam Vital Signs: Vital Signs: Last Vital Signs Temp 97.0 F 09/29/20 07:22 Pulse 93 09/29/20 07:24 Resp 18 09/29/20 07:22 BP 147/91 H 09/29/20 07:22 Pulse Ox 91 L 09/29/20 07:22 Body Mass Index 35.1 Const: General: cooperative Orientation/consciousness: patient oriented x3 Neck: Neck: Yes supple Resp: Auscultation: diminished lung sounds Cardio: Rate: regular rate GI: Palpation (GI): Soft to palpation Neuro: General: patient oriented x3 Objective Data Labs CBC & Chem 7: 09/29/20 05:24 09/29/20 05:24 Labs: Laboratory Results - last 24 hr 09/28/20 09/28/20 09/28/20 11:13 16:25 20:56 WBC RBC Hgb Hct MCV MCH MCHC RDW Plt Count MPV Absolute Nucleated RBC Nucleated RBC % (auto) Sodium Potassium Chloride Carbon Dioxide Anion Gap BUN Creatinine Estim Creat Clear Calc Estimated GFR POC Glucose 197 H 192 H 350 H* Random Glucose Calcium 09/29/20 09/29/20 09/29/20 05:24 05:24 07:28 WBC 9.2 RBC 4.03 L Hgb 12.0 L Hct 40.1 L MCV 99.5 H MCH 29.8 MCHC 29.9 L RDW 17.0 H Plt Count 226 MPV 10.1 Absolute Nucleated RBC 0.000 Nucleated RBC % (auto) 0.0 Sodium 130 L Potassium 5.0 Chloride 90 L Carbon Dioxide 32 H Anion Gap 13 BUN 48 H Creatinine 0.92 Estim Creat Clear Calc 122.9 Estimated GFR > 60 POC Glucose 94 Random Glucose 98 D Calcium 8.6 Microbiology Microbiology Results: Microbiology 09/24/20 19:52 Blood - Venous Blood Culture - Preliminary No growth after 48 hours. 09/24/20 19:48 Blood - Venous Blood Culture - Preliminary No growth after 48 hours. 09/24/20 22:25 Urine [place] Urine Culture - Final Assessment & Plan Assessment and plan (1) Hyponatremia: Problem details: Serum sodium better/Stable Needs serum cortisol check for baseline Concur with rest of current supportive management Shall arrange outpt follow up when D/Oliver Status: Acute Time Spent With Patient Time: Total time spent is greater than 50% in coordination of care (as documented) at patient's floor/unit and/or counseling patient:
[2020-09-29] MEDS: predniSONE 20 MG TABLET 40 MG PO (10:01)
[2020-09-29] MEDS: Magnesium Oxide 400 MG TABLET PO (10:01)
[2020-09-29] MEDS: Urea 15 GM POWDER PO (10:01)
[2020-09-29] MEDS: Metoprolol Tartrate 25 MG TABLET PO (10:01)
[2020-09-29] MEDS: guaiFENesin LA 600 MG TAB.ER.12H PO (10:01)
[2020-09-29] MEDS: Thiamine HCL 100 MG TABLET PO (10:01)
[2020-09-29] MEDS: Folic Acid 1 MG TABLET PO (10:02)
[2020-09-29] MEDS: Apixaban 5 MG TABLET PO (10:02)
[2020-09-29] MEDS: polyethylene glycoL 3350 17 GM POWD.PACK PO (10:02)
[2020-09-29] MEDS: PHENobarbitaL 30 MG TABLET PO (10:02)
[2020-09-29] MEDS: Atorvastatin Calcium 20 MG TABLET PO (10:02)
[2020-09-29] MEDS: Omeprazole 40 MG CAPSULE.DR PO (10:02)
[2020-09-29 11:42] LABS: Glucose, Whole Blood 236 mg/dL (60-115)
[2020-09-29] MEDS: Insulin Lispro 100 UNIT/ML 3 ML VIAL SUBCUT (11:58)
--- NOTE | 2020-09-29 12:29 | MHC.RECOVSUP ---
Recovery Support note: Patient is a 64 year old Uzbek speaking male who presented to [facility] ED after being sent from the wound clinic due to swollen feet and non-healing wounds. This sba underwriter and the Recovery Support RN met with patient in room 487-1 to discuss his alcohol use and treatment options. Patient reports that his leg/ foot wounds have dramatically improved since he came to the hospital and he attributes this to not drinking. Patient acknowledges that the daily alcohol consumption was making it harder for his wounds to heal and that he is ready to enter recovery and maintain sobriety. Patient reports he has a strong support network of family and friends. Patient states that his family has been waiting for him to enter recovery for a long time and they will all be eager to support him as needed. Patient also [facility]. Discussed additional [facility] supports and outpatient supports with patient. Patient reports he has tried AA in the past but did not have a positive experience. Encouraged patient to focus on his health and his family and to reach out to supports as needed. Patient reports confidence he will be able to maintain sobriety. Discussed case with patient's RN, Mila.
--- NOTE | 2020-09-29 13:28 | P.DS_ITS ---
DS: Providers Provider Date of admission: 09/25/20 01:07 Primary care physician: Unknown Physician Consults: 09/25/20 05:17 Consult to Vascular Surgery Routine Consulting Provider: Peyman Lovell Reason for consultation: Poor circulation in lower extremities Has provider been notified: No 09/25/20 08:47 Consult to Nephrology Routine Consulting Provider: Pablito Hernandez Reason for consultation: hyponatremia, hyperK 09/25/20 09:37 Consult to Infectious Diseases Routine Consulting Provider: Priyanka English Reason for consultation: venous statis + cellulitis 09/26/20 09:01 Consult to Pulmonology Routine Consulting Provider: Godfrey Ramirez Reason for consultation: costa, copd, co2 retention DS: Diagnosis Discharge Diagnosis (1) Hyponatremia: Status: Acute (2) Cellulitis: Status: Acute (3) Acute respiratory failure with hypoxia and hypercarbia: Status: Acute (4) Atrial fibrillation: Status: Acute (5) Alcohol abuse with physiological dependence: Status: Acute DS: Medications Discharge Medications Home Medications: Home Medications Medication Instructions Recorded Confirmed Eliquis 5 mg PO BID 09/24/20 09/24/20 ascorbic acid (vitamin C) 500 mg PO BID 09/24/20 09/24/20 atorvastatin 20 mg PO DAILY 09/24/20 09/24/20 buprenorphine HCl 4 mg SUBLINGUAL Q6H PRN 09/24/20 09/24/20 calcium carbonate-vitamin D3 1 tab PO DAILY 09/24/20 09/24/20 clobetasol 1 appl TOPICAL BID PRN 09/24/20 09/24/20 ferrous sulfate 325 mg PO DAILY 09/24/20 09/24/20 folic acid 1 mg PO DAILY 09/24/20 09/24/20 gabapentin 300 mg PO BEDTIME 09/24/20 09/24/20 insulin glargine 22 unit SUBCUT BEDTIME 09/24/20 09/24/20 insulin lispro 2 unit SUBCUT TID 09/24/20 09/24/20 levothyroxine 112 mcg PO DAILY 09/24/20 09/24/20 magnesium oxide 400 mg PO DAILY 09/24/20 09/24/20 methocarbamol 750 mg PO BID PRN 09/24/20 09/24/20 metoprolol tartrate 12.5 mg PO BID 09/24/20 09/24/20 multivitamin 1 tab PO DAILY 09/24/20 09/24/20 nystatin [Nystop] 1 appl TOPICAL BID 09/24/20 09/24/20 omeprazole 40 mg PO BID 09/24/20 09/24/20 polyethylene glycol 3350 [Miralax] 17 g PO DAILY 09/24/20 09/24/20 sennosides [senna] 17.2 mg PO BEDTIME 09/24/20 09/24/20 thiamine HCl (vitamin B1) 100 mg PO DAILY 09/24/20 09/24/20 torsemide 20 mg PO BID 09/24/20 09/24/20 triamcinolone acetonide 1 appl TOPICAL BID 09/24/20 09/24/20 Previous Rx's Medication Instructions Recorded doxycycline hyclate 100 mg PO BID #14 tab 09/29/20 guaifenesin [Mucinex] 600 mg PO BID #12 tab 09/29/20 prednisone 20 mg PO DAILY #5 tab 09/29/20 DS: Summary Hospital Course Hospital Course: History of presenting illness Chief Complaint: Dyspnea, worsening leg, feet wounds 64 year old man with multiple medical problems presented from wound care at suggestion of vascular surgeon due to worsening appearance of feet. Patient has history of lower extremity edema and chronic venous stasis and has been seen at wound care regularly. His feet have been more erythematous lately and that caused him to be referred to ED. He states no pain in the feet as he has no sensation. States he had a spinal infection approx 4-5 years ago and since has been reliant on motorized scooter as he cannot walk. Per report he had a foot infection that led to his spinal issue so description seems like epidural abscess seeded from the feet. He has been getting wound care periodically for his feet but appearance is worse lately. Denies fevers or chills. Does have weeping from foot wounds that is chronic. He also was hypoxemic on presentation. Occasional cough that produces thick sputum. No chest pain reported. Also noted to be significantly hyponatremic on presentation but no dizziness or lightheadedness and no nausea/vomiting. Also of note, patient has a chronic indwelling Franklin that is changed every 2 weeks. States had a neobladder constructed after resection for bladder cancer and is dpendent on the Franklin now. used to be able to change it but has limited use of his left arm and hand no so cannot self-cath. Arm issues stem from a cervical surgery he was having several years ago. He also is a heavy drinker, consuming approx a half liter or more of spirits daily. States gets shakes occasionally and hallucinations when not drinking but no seizures. Currently was slated to go to rehab for ETOH but had to come here instead for the feet issue. Hospital course 1. Chronic venous stasis with superimposed cellulitis Patient treated with doxycycline blood culture showed no growth, patient is now being discharged home on by mouth doxycycline, patient evaluated by vascular surgery no intervention planned will need outpatient vascular surgery follow-up 2. Acute Respiratory failure with hypoxia / hypercarbia likely related to undiagnosed COPD plus obesity hypoventilation syndrome patient has tried CPAP and unable to tolerate due to claustrophobia will continue home O2 2 L at night, patient evaluated by pulmonology will be discharged home on 5 more days of steroids and echocardiogram showed a normal left ventricular function Recommended weight reduction and outpatient pulmonology follow-up 3. HypoNa slowly improving, Nephro recommend to continue urea 15 mg b.i.d. follow BMP in 1 week 4. A. Fib continue metoprolol and eliquis 5. Alcohol abuse and dependence patient treated with phenobarb protocol seen by care team patient has outpatient referrals for alcohol withdrawal treatment at [facility] 6. DM continue home medication and diabetic dietdiabetic diet Time Spent with Patient Time attestation: Total time spent providing and/or coordinating discharge services: Physical Exam Vital Signs: Vital Signs: Last Vital Signs Temp 97.5 F 09/29/20 11:33 Pulse 89 09/29/20 11:33 Resp 18 09/29/20 11:33 BP 134/69 09/29/20 11:33 Pulse Ox 96 09/29/20 11:33 Body Mass Index 35.1 General - no acute distress, appears comfortable Cardiovascular - regular rate and rhythm, S1-S2 Lungs - no distress, diminished breath sound at bases Abdomen - soft, nontender, no rebound or guarding Neuro - awake and alert, no focal deficits Skin - bilateral chronic skin changes, foam dressing to right big toe and right leg in place no drainage noted DS: Data Data Completed and Pending Labs on day of discharge: Laboratory Last Values WBC 9.2 X10*3/uL (4.8-10.8) 09/29/20 05:24 RBC 4.03 X10*6/uL (4.60-5.80) L 09/29/20 05:24 Hgb 12.0 g/dl (14.0-18.0) L 09/29/20 05:24 Hct 40.1 % (42-52) L 09/29/20 05:24 MCV 99.5 fL (80-98) H 09/29/20 05:24 MCH 29.8 pg (27.0-33.0) 09/29/20 05:24 MCHC 29.9 g/dl (31.0-36.0) L 09/29/20 05:24 RDW 17.0 % (11.0-16.0) H 09/29/20 05:24 Plt Count 226 X10*3/uL (160-400) 09/29/20 05:24 MPV 10.1 fL (9.4-12.4) 09/29/20 05:24 Immature Gran % (Auto) 1.6 % (0.0-0.4) H 09/25/20 05:51 Neut % (Auto) 91.3 % (45-73) H 09/25/20 05:51 Lymph % (Auto) 3.7 % (20-40) L 09/25/20 05:51 [place] % (Auto) 3.3 % (2-11) 09/25/20 05:51 Eos % (Auto) 0.0 % (0-4) 09/25/20 05:51 Baso % (Auto) 0.1 % (0-2) 09/25/20 05:51 Lymph # (Auto) 0.4 X10*3/uL (1.2-4.9) L 09/25/20 05:51 [place] # (Auto) 0.4 X10*3/uL (0.1-1.2) 09/25/20 05:51 Eos # (Auto) 0.0 X10*3/uL (0.0-0.4) 09/25/20 05:51 Baso # (Auto) 0.0 X10*3/uL (0.0-0.2) 09/25/20 05:51 Abs Immat Gran (auto) 0.17 X10*3/uL (0.00-0.03) H 09/25/20 05:51 Absolute Neuts (auto) 9.8 X10*3/uL (2.0-8.3) H 09/25/20 05:51 Absolute Nucleated RBC 0.000 X10*3/uL (0.0-0.012) 09/29/20 05:24 Nucleated RBC % (auto) 0.0 /100WBC (0.0-0.2) 09/29/20 05:24 Smear Tech's Comments VERIFIED 09/25/20 05:51 PT 17.2 SEC (10.8-13.0) H 09/24/20 19:49 INR 1.4 (0.9-1.1) H 09/24/20 19:49 APTT 30.4 SEC (24.1-38.0) 09/24/20 19:49 ABG pH TNP 09/25/20 13:18 ABG pCO2 TNP 09/25/20 13:18 ABG pO2 TNP 09/25/20 13:18 ABG HCO3 TNP 09/25/20 13:18 ABG O2 Saturation TNP 09/25/20 13:18 ABG Base Excess TNP 09/25/20 13:18 VBG pH 7.31 (7.32-7.43) L 09/26/20 06:03 VBG pCO2 61 mmhg 09/26/20 06:03 VBG pO2 71 mmhg 09/26/20 06:03 VBG HCO3 30 mmol/L 09/26/20 06:03 VBG O2 Saturation 93.4 % 09/26/20 06:03 VBG Base Excess 2.4 mmol/L 09/26/20 06:03 Oxygen Given 2 L 09/25/20 13:18 Sodium 130 mmol/L (135-145) L 09/29/20 05:24 Potassium 5.0 mmol/l (3.3-5.1) 09/29/20 05:24 Chloride 90 mmol/L (96-108) L 09/29/20 05:24 Carbon Dioxide 32 mmol/L (22-29) H 09/29/20 05:24 Anion Gap 13 (12-20) 09/29/20 05:24 BUN 48 mg/dL (9-16) H 09/29/20 05:24 Creatinine 0.92 mg/dL (0.5-1.4) 09/29/20 05:24 Estim Creat Clear Calc 122.9 09/29/20 05:24 Estimated GFR > 60 09/29/20 05:24 POC Glucose 236 mg/dL (60-115) H 09/29/20 11:16 Random Glucose 98 mg/dL (60-115) D 09/29/20 05:24 Fasting Glucose 282 mg/dL (60-99) H 09/25/20 05:51 Lactic Acid 2.6 mmol/L (0.5-2.0) H* 09/24/20 19:48 Lactic Acid Fup @ 2Hr 2.3 mmol/L (0.5-2.0) H* 09/24/20 22:02 Lactic Acid Fup @ 4Hr 2.9 mmol/L (0.5-2.0) H* 09/25/20 03:07 Calcium 8.6 mg/dL (8.4-10.2) 09/29/20 05:24 Magnesium 2.3 mg/dL (1.6-2.6) 09/24/20 19:48 Ferritin 43 ng/mL (20-250) 09/24/20 19:48 Total Bilirubin 0.4 mg/dL (0.0-1.0) 09/24/20 19:49 Direct Bilirubin 0.3 mg/dL (0.0-0.5) 09/24/20 19:49 AST 33 U/L (5-37) 09/24/20 19:49 ALT 55 U/L (0-40) H 09/24/20 19:49 Alkaline Phosphatase 142 U/L (39-117) H 09/24/20 19:49 Ammonia 40 umol/L (13-55) 09/25/20 17:34 Lactate Dehydrogenase 558 U/L (118-273) H 09/24/20 19:48 Troponin I High Sens 11.0 ng/L (<3.5-35.0) 09/24/20 19:48 C-Reactive Protein 1.01 mg/dL (< or = 0.50) H 09/24/20 19:48 B-Natriuretic Peptide 50 pg/mL (<100) 09/24/20 19:48 Total Protein 6.4 g/dL (6.5-8.0) L 09/24/20 19:49 Albumin 3.6 g/dL (3.5-5.0) 09/24/20 19:49 Procalcitonin 0.43 ng/mL 09/24/20 19:50 TSH 1.41 mIU/mL (0.32-4.0) 09/25/20 05:51 TSH Cancelled 09/25/20 05:51 Urine Color COLORLESS 09/24/20 22:04 Urine Appearance CLOUDY 09/24/20 22:04 Urine pH 8.0 (5.0-8.0) 09/24/20 22:04 Ur Specific [place] 1.015 (1.005-1.025) 09/24/20 22:04 Urine Protein NEG MG/DL (NEG-TRACE) 09/24/20 22:04 Urine Glucose (UA) NEG MG/DL (NEG) 09/24/20 22:04 Urine Ketones NEG MG/DL (NEG) 09/24/20 22:04 Urine Blood 3+ (NEG) H 09/24/20 22:04 Urine Nitrite POS (NEG) H 09/24/20 22:04 Ur Leukocyte Esterase 3+ (NEG) H 09/24/20 22:04 Urine RBC 10-14 /HPF (0) H 09/24/20 22:04 Urine WBC 30-49 /HPF (0-4) H 09/24/20 22:04 Ur Squamous Epith Cells 1+ /LPF 09/24/20 22:04 Urine Bacteria 2+ /LPF 09/24/20 22:04 Urine Mucus 1+ /LPF 09/24/20 22:04 Urine Osmolality 287 mosm/kg (373-1093) L 09/25/20 09:24 Ur Random Sodium 21.0 mmol/L 09/25/20 09:24 Vancomycin Trough 16.9 mcg/mL (10.0-20.0) 09/26/20 14:13 Urine Opiates Screen Not Detected (Not Detect) 09/25/20 Unknown Ur Barbiturates Screen POSITIVE (Not Detect) H 09/25/20 Unknown Ur Phencyclidine Scrn Not Detected (Not Detect) 09/25/20 Unknown Ur Amphetamines Screen Not Detected (Not Detect) 09/25/20 Unknown U Benzodiazepines Scrn Not Detected (Not Detect) 09/25/20 Unknown Urine Cocaine Screen Not Detected (Not Detect) 09/25/20 Unknown U Marijuana (THC) Screen POSITIVE (Not Detect) H 09/25/20 Unknown Ethyl Alcohol 28 mg/dL 09/24/20 20:11 Coronavirus (PCR) NEGATIVE (Negative) 09/24/20 19:51 Influenza Type A (PCR) NEGATIVE (Negative) 09/24/20 19:51 Influenza Type B (PCR) NEGATIVE (Negative) 09/24/20 19:51 RSV RNA Qual (PCR) NEGATIVE (Negative) 09/24/20 19:51 Preliminary micro results at discharge 09/24/20 19:52 Blood Culture - Preliminary Blood - Venous No growth after 48 hours. 09/24/20 19:48 Blood Culture - Preliminary Blood - Venous No growth after 48 hours. Discharge Plan Discharge Patient Disposition: Home Health Service Referrals: Physician,Unknown [Primary Care Provider] - Discharge Medications: New doxycycline hyclate 100 mg Tablet 100 mg PO BID Qty: 14 RF: 0 guaifenesin [Mucinex] 600 mg Tablet Extended Release 12hr 600 mg PO BID Qty: 12 RF: 0 prednisone 20 mg tablet 20 mg PO DAILY Qty: 5 RF: 0 Continued multivitamin Tablet 1 tab PO DAILY RF: 0 sennosides [senna] 8.6 mg Tablet 17.2 mg PO BEDTIME RF: 0 atorvastatin 20 mg Tablet 20 mg PO DAILY RF: 0 insulin glargine 100 unit/mL Solution 22 unit SUBCUT BEDTIME RF: 0 torsemide 20 mg Tablet 20 mg PO BID RF: 0 polyethylene glycol 3350 [Miralax] 17 gram Powder In Packet 17 g PO DAILY RF: 0 thiamine HCl (vitamin B1) 100 mg Tablet 100 mg PO DAILY RF: 0 omeprazole 40 mg Capsule,Delayed Release(Dr/Ec) 40 mg PO BID RF: 0 triamcinolone acetonide 0.1 % Cream 1 appl TOPICAL BID RF: 0 magnesium oxide 400 mg (241.3 mg magnesium) Tablet 400 mg PO DAILY RF: 0 methocarbamol 750 mg Tablet 750 mg PO BID PRN (Reason: Muscle Spasm) RF: 0 ascorbic acid (vitamin C) 500 mg Tablet 500 mg PO BID RF: 0 ferrous sulfate 325 mg (65 mg iron) Tablet 325 mg PO DAILY RF: 0 gabapentin 300 mg Capsule 300 mg PO BEDTIME RF: 0 folic acid 1 mg Tablet 1 mg PO DAILY RF: 0 nystatin [Nystop] 100,000 unit/gram Powder 1 appl TOPICAL BID RF: 0 insulin lispro 100 unit/mL Solution 2 unit SUBCUT TID RF: 0 levothyroxine 112 mcg Tablet 112 mcg PO DAILY RF: 0 buprenorphine HCl 2 mg Tablet, Sublingual 4 mg SUBLINGUAL Q6H PRN (Reason: Pain) RF: 0 metoprolol tartrate 25 mg Tablet 12.5 mg PO BID RF: 0 calcium carbonate-vitamin D3 600-125 mg-unit Tablet 1 tab PO DAILY RF: 0 Eliquis 5 mg Tablet 5 mg PO BID RF: 0 clobetasol 0.05 % Cream 1 appl TOPICAL BID PRN (Reason: Rash) RF: 0 Discharge Orders: Discharge Order (Routine); Ordered 09/29/20 Ordered By: Jaime Wesley Diet: low fat, low cholesterol and low salt diet Activity on Discharge: As tolerated Visit Report Forms: Patient Portal Discharge page Care Plan Goals: abstain from alcohol outpatient follow-up for alcohol detox Health Concerns: Continue all medications as before Plan of Treatment: Close outpatient follow-up with primary care physician
--- NOTE | 2020-09-29 14:29 | P.PNVS_ITS ---
Subjective Subjective Date of Service: 09/29/20 Patient reports: no new complaints and feels better Interval history: Patient with nonhealing right great toe. He has been doing significantly better since admission. Of note he has undergone CT angiogram of aorta and lower extremities yesterday. We are awaiting results. Physical Exam Vital Signs: Vital Signs: Last Vital Signs Temp 97.5 F 09/29/20 11:33 Pulse 89 09/29/20 11:33 Resp 18 09/29/20 11:33 BP 134/69 09/29/20 11:33 Pulse Ox 96 09/29/20 11:33 Body Mass Index 35.1 Const: General: cooperative, healthy appearing and no acute distress Orientation/consciousness: oriented to person, oriented to place and oriented to time HENMT: Head: Yes normal to inspection Neck: Carotids: no bruits Chest: Chest palpation & inspection: normal inspection of the chest Resp: Effort & Inspection: normal respiratory effort and able to speak in complete sentences Auscultation: clear to auscultation bilaterally Cardio: Rate: regular rate Heart sounds: S1 normal heart sound present and S2 normal heart sound present GI: Inspection: Yes normal to inspection Skin: General skin exam: no rashes or lesions noted Wounds: no wounds Neuro: General: oriented to person, oriented to place, oriented to time and CN's II-XI intact bilaterally Extrem: General: Yes normal to inspection, Yes full ROM and Yes no clubbing, cyanosis or edema Psych: Appearance: grossly normal and well kempt Speech and movement: Normal speech and movement present Affect: normal affect Progress Note: A&P Assessment and plan (1) PAD (peripheral artery disease): Status: Acute Assessment and Plan: In general appears to be doing significantly better since admission. We will await results of CT angiogram. I do not anticipate intervention at this admission. Would like his respiratory and renal status to stabilize prior to any intervention. Thank you for allowing us to assist in his care. Fall Risk Details Current Medications: Current Medications Generic Name Dose Route Start Last Admin Trade Name Freq PRN Reason Stop Dose Admin Albuterol/Ipratropium 3 ml 09/28/20 02:42 Albuterol/Iprat 2.5/0.5mg 3 Ml Ampul.Neb INHALE RQ4H PRN Shortness of Breath/Wheezing Apixaban 5 mg 09/25/20 09:00 09/29/20 10:02 Apixaban 5 Mg Tablet PO 5 mg BID ADY Administration Atorvastatin Calcium 20 mg 09/25/20 09:00 09/29/20 10:02 Atorvastatin Calcium 20 Mg Tablet PO 20 mg DAILY ADY Administration Buprenorphine HCl 4 mg 09/28/20 08:00 09/29/20 06:55 Buprenorphine Hcl 2 Mg Tab.Subl SUBLINGUAL 4 mg Q6H PRN Administration Pain Doxycycline Hyclate 100 mg 09/26/20 21:00 09/29/20 11:58 Doxycycline Hyclate 100 Mg Tablet PO 100 mg BID ADY Administration Folic Acid 1 mg 09/25/20 09:00 09/29/20 10:02 Folic Acid 1 Mg Tablet PO 1 mg DAILY ADY Administration Guaifenesin 600 mg 09/25/20 09:00 09/29/20 10:01 Guaifenesin [place] 600 Mg Tab.Er.12h PO 600 mg BID ADY Administration Insulin Glargine 22 unit 09/25/20 21:00 09/28/20 21:15 Insulin Glargine,Hum.Rec.Anlog 100 Unit/Ml 10 Ml Vial SUBCUT 22 unit BEDTIME ADY Administration Insulin Human Lispro 0 unit 09/25/20 07:30 09/29/20 11:58 Insulin Lispro 100 Unit/Ml 3 Ml Vial SUBCUT 4 unit [facility] Administration Protocol Levalbuterol HCl 1.25 mg 09/25/20 12:00 09/29/20 11:06 Levalbuterol Hcl 1.25 Mg/3 Ml Vial.Neb INHALE 1.25 mg RQ4H WHILE AWAKE ADY Administration Levothyroxine Sodium 112 mcg 09/25/20 06:00 09/29/20 05:54 Levothyroxine Sodium 112 Mcg Tablet PO 112 mcg DAILY@0600 [facility] Administration Magnesium Oxide 400 mg 09/25/20 09:00 09/29/20 10:01 Magnesium Oxide 400 Mg Tablet PO 400 mg DAILY [facility] Administration Medication 1 each 09/26/20 09:00 No Benzodiazepines MISCELLANE DAILY [facility] Metoprolol Tartrate 25 mg 09/28/20 21:00 09/29/20 10:01 Metoprolol Tartrate 25 Mg Tablet PO 25 mg BID ADY Administration Protocol Omeprazole 40 mg 09/25/20 09:00 09/29/20 10:02 Omeprazole 40 Mg Capsule.Dr PO 40 mg BID ADY Administration Pharmacy Consult 1 each 09/24/20 20:00 Consult Rx Perform Med Rec MISCELLANE ONCE PRN Consult order Pharmacy Consult 1 each 09/24/20 23:37 Consult Rx Vancomycin Dosing MISCELLANE DAILY PRN Consult order Pharmacy Consult 1 each 09/25/20 06:46 Consult Rx Vancomycin Dosing MISCELLANE DAILY PRN Consult order Phenobarbital 30 mg 09/29/20 09:00 09/29/20 10:02 Phenobarbital 30 Mg Tablet PO 09/30/20 21:01 30 mg BID ADY Administration Phenobarbital 30 mg 10/01/20 09:00 Phenobarbital 30 Mg Tablet PO 10/02/20 09:01 DAILY ADY Polyethylene Glycol 17 gm 09/27/20 10:10 09/29/20 10:02 Polyethylene Glycol 3350 17 Gm Powd.Pack PO 17 gm DAILY ADY Administration Prednisone 40 mg 09/28/20 12:30 09/29/20 10:01 Prednisone 20 Mg Tablet PO 40 mg DAILY ADY Administration Sodium Chloride 3 ml 09/25/20 08:00 09/29/20 10:02 0.9 % Sodium Chloride Flush 3 Ml Syringe IVFLUSH 3 ml QSHIFT ADY Administration Thiamine HCl 100 mg 09/25/20 09:00 09/29/20 10:01 Thiamine Hcl 100 Mg Tablet PO 100 mg DAILY ADY Administration Trazodone HCl 25 mg 09/28/20 23:28 09/29/20 00:06 Trazodone Hcl 25 Mg Halftab PO 25 mg BEDTIME PRN Administration Insomnia Urea 15 gm 09/26/20 21:00 09/29/20 10:01 Urea 15 Gm Powder PO 15 gm BID ADY Administration Time Spent With Patient Time: Total time spent is greater than 50% in coordination of care (as documented) at patient's floor/unit and/or counseling patient: Time with patient: 25 - 35 minutes
== END 2020-09-29 15:28 | disposition home health service (06) | DRG 602 ==
LOC: HO.ED 23:27 → HO.IMC 09-25 01:21
PROVIDERS: Family Medicine; Physician Assistant; Admitting Provider Internal Medicine; Emergency Provider Emergency Medicine; PCP Internal Medicine; Visit Provider Hospitalist
DX: L03.116 Cellulitis of left lower limb (principal); J96.02 Acute respiratory failure with hypercapnia; J96.01 Acute respiratory failure with hypoxia; I87.333 Chronic venous hypertension (idiopathic) with ulcer and inflammation of bilateral lower extremity; F10.239 Alcohol dependence with withdrawal, unspecified; E22.2 Syndrome of inappropriate secretion of antidiuretic hormone; E66.2 Morbid (severe) obesity with alveolar hypoventilation; L97.929 Non-pressure chronic ulcer of unspecified part of left lower leg with unspecified severity; L97.919 Non-pressure chronic ulcer of unspecified part of right lower leg with unspecified severity; L03.115 Cellulitis of right lower limb; I48.91 Unspecified atrial fibrillation; E11.42 Type 2 diabetes mellitus with diabetic polyneuropathy; E03.9 Hypothyroidism, unspecified; Z95.810 Presence of automatic (implantable) cardiac defibrillator; E87.5 Hyperkalemia; Z99.3 Dependence on wheelchair; F40.240 Claustrophobia; G89.29 Other chronic pain; Z20.828 Contact with and (suspected) exposure to other viral communicable diseases; Z68.35 Body mass index [BMI] 35.0-35.9, adult; J44.9 Chronic obstructive pulmonary disease, unspecified; Z88.5 Allergy status to narcotic agent; Z88.6 Allergy status to analgesic agent; Z79.4 Long term (current) use of insulin; Z79.01 Long term (current) use of anticoagulants; Z79.52 Long term (current) use of systemic steroids; Z79.890 Hormone replacement therapy; Z79.899 Other long term (current) drug therapy
CPT/HCPCS: 0241U; 36415; 36600; 71045; 71250; 73620; 74176; 75635; 80048; 80076; 80202; 80307; 80320; 81001; 82140; 82728; 82803; 82947; 83605; 83615; 83735; 83880; 83935; 84145; 84300; 84443; 84484; 85025; 85027; 85610; 85730; 86140; 87040; 87086; 93005; 93306; 94640; 94664; 96372; 96374; 96375; 99232; 99285; J0571; J1100; J1940; J2543; J2560; J2920; J2930; J3370; Q9967

== ENCOUNTER → 2020-10-29 13:02 | Outpatient (BNVA) | payer OTHER, SELFPAY | PROVIDERS: PCP Internal Medicine; Visit Provider Surgery Vascular Surgery | DX: I73.9 Peripheral vascular disease, unspecified (principal); L97.519 Non-pressure chronic ulcer of other part of right foot with unspecified severity; I71.2 Thoracic aortic aneurysm, without rupture | CPT/HCPCS: 99212 ==

== ENCOUNTER 2020-11-04 06:03 | Day surgery (SDC) | payer OTHER, SELFPAY ==
[2020-11-04] VITALS (11 sets, daily range): BP systolic 128–154; BP diastolic 71–97; PULSE 92–109; RESP 20–24; TEMP 36.1–36.2; O2SAT 91–98; BMI 28.8
[2020-11-04 06:40] LABS: Glucose, Whole Blood 161 mg/dL (60-115)
[2020-11-04 06:55] LABS: Basophils Percent Auto 0.6 % (0-2); Eosinophils Absolute Auto 0.4 X10*3/uL (0.0-0.4); Eosinophils Percent Auto 5.8 % (0-4); Hematocrit 39.7 % (42-52); Hemoglobin 11.8 g/dl (14.0-18.0); Imm Gran Abs Auto 0.02 X10*3/uL (0.00-0.03); Imm Gran Pct Auto 0.3 % (0.0-0.4); Lymphocytes Absolute Auto 0.6 X10*3/uL (1.2-4.9); Lymphocytes Percent Auto 8.6 % (20-40); MANUAL DIFF FLAG SCAN; Mean Corpuscular HGB Conc 29.7 g/dl (31.0-36.0); Mean Corpuscular Volume 97.5 fL (80-98); Mean Platelet Volume 10.6 fL (9.4-12.4); Monocytes Absolute Auto 0.6 X10*3/uL (0.1-1.2); Neutrophils Absolute Auto 5.3 X10*3/uL (2.0-8.3); Neutrophils Percent Auto 76.7 % (45-73); Platelet Count 221 X10*3/uL (160-400); Red Blood Count 4.07 X10*6/uL (4.60-5.80); Red Cell Distribution Width 15.5 % (11.0-16.0); SCAN SMEAR FLAG 1; White Blood Count 6.9 X10*3/uL (4.8-10.8)
[2020-11-04 07:00] LABS: INTERNATIONAL NORM RATIO 1.1 (0.9-1.1); Prothrombin Time 13.4 SEC (10.8-13.0)
[2020-11-04 07:03] LABS: Partial Thromboplastin Time 36.1 SEC (24.1-38.0)
[2020-11-04 07:15] LABS: Anion Gap 12 (12-20); Blood Urea Nitrogen 32 mg/dL (9-16); Calcium 8.6 mg/dL (8.4-10.2); Carbon Dioxide 33 mmol/L (22-29); Chloride 96 mmol/L (96-108); Creatinine Clr Calc Pharmacy 105.7; Estimated Glomerular Filt Rate > 60; Glucose Random 152 mg/dL (60-115); Potassium 4.4 mmol/L (3.3-5.1); Sodium 137 mmol/L (135-145)
[2020-11-04 07:27] LABS: SLIDE REVIEW VERIFIED
[2020-11-04] MEDS: Lidocaine HCl 1 % MPF 5 ML VIAL 10 ML SUBCUT (08:40)
[2020-11-04] MEDS: iohexoL 300 MG/ML 100 ML INFUS..BTL IV (08:40)
--- NOTE | 2020-11-04 08:55 | P.OP_ITS ---
Operative Note Operative Note Date of Service: 11/04/20 Narrative: Angiogram report from [facility] Preoperative diagnosis: Peripheral arterial disease of right lower extremity, nonhealing ulcer Postoperative diagnosis: Same Procedure: 1. Ultrasound-guided right common femoral access 2. Aortogram with right lower extremity runoff Surgeon:Peyman Lovell M.D. [employer] Analyst:None Anesthesia: Local with moderate conscious sedation for a total of 36 minutes, performed by mt Specimens:none Drains:none Estimated blood loss:minimal Indications: 65-year-old gentleman with a prior history endovascular aortic aneurysm repair presents for nonhealing right lower extremity ulcer. There was a question of his arterial flow on the noninvasive arterial testing. He has had prior endovascular assessment over 2 years prior. He now presents for right lower extremity endovascular intervention, possible plasty, possible stent. Risks benefits complications were discussed in detail with the patient. Patient understood and consented. Procedure in detail: Patient was brought to the angiography suite prior to which a time-out was called for patient identification and site verification. Bilateral groins were prepped and draped in the standard surgical fashion. Under ultrasound guidance right common femoral was punctured with micro puncture needle and wire. Subsequently a precision 4 American sheath was then placed. Sync.MEson wire was advanced to the level of the aorta. 4 American Flush catheter was brought up and parked at the level of the renal arteries. Aortogram was then undertaken. Catheter was brought down to the level of the iliac bifurcation. Iliacs were subsequently imaged. Through the sheath runoff study was then undertaken. No intervention was indicated. Sheath was then removed. Direct pressure was held for 10 minutes. Adequate hemostasis was achieved. Interpretation of films: 1. Ultrasound demonstrates appropriate femoral puncture. Image of which was saved. 2. Aortogram demonstrates appropriate caliber aorta. Minimal disease. Appropriate take-off of the renals. 3. Iliac images demonstrate normal flow all the way down. Multiple orthogonal views had to be undertaken due to hip hardware. No flow-limiting stenosis was appreciated through the iliac arteries. 4. Right lower extremity study demonstrated excellent flow down to the common femoral appropriate take-off of the profunda femorals. SFA was patent all the way down to the popliteal. The patient had good 3 vessel runoff anterior tibial and posterior tibial being most dominant thank created a completion foot arch. Peroneal was a little bit diminutive and did terminate at the level of the ankle. Conclusion: 1. Successful diagnostic angiogram. No intervention indicated. Continue with local wound care. This note is constructed using voice recognition software. While every effort has been made to ensure accuracy, handle machine operator errors may have been included. Thank you for allowing me to participate in the care of your patient. Yours sincerely, Peyman Lovell MD, FACS, R.P.V.I.
[2020-11-04] MEDS: Morphine Sulfate 4 MG/ML CARTRIDGE IVPUSH (09:06)
[2020-11-04] MEDS: oxyCODONE HCl Immed Release 5 MG TABLET PO (09:33)
== END 2020-11-04 12:45 | disposition home or self-care (01) ==
PROVIDERS: Visit Provider Surgery Vascular Surgery
DX: I70.235 Atherosclerosis of native arteries of right leg with ulceration of other part of foot (principal); L97.519 Non-pressure chronic ulcer of other part of right foot with unspecified severity
CPT/HCPCS: 36200; 36246; 36247; 36415; 75625; 75630; 75710; 76937; 76942; 80048; 82947; 85025; 85610; 85730; 99152; 99153; C1769; C1887; J2250; J2270; J3010; Q9967

== ENCOUNTER → 2020-11-26 13:18 | Outpatient (BNVA) | payer OTHER, SELFPAY | PROVIDERS: PCP Internal Medicine; Visit Provider Surgery Vascular Surgery | DX: I73.9 Peripheral vascular disease, unspecified (principal); M79.89 Other specified soft tissue disorders; E11.622 Type 2 diabetes mellitus with other skin ulcer; L97.929 Non-pressure chronic ulcer of unspecified part of left lower leg with unspecified severity; L97.919 Non-pressure chronic ulcer of unspecified part of right lower leg with unspecified severity | CPT/HCPCS: 99212 ==